=== PATIENT | male | born 1980 | race African-American/Black ===

== ENCOUNTER 2017-01-24 17:28 | Emergency (ER) | payer OTHER ==
[~2017-01-24] VITALS: Ht 175.3 cm; Wt 84.0 kg
[~2017-01-24 17:28] MED LIST: IBUP400T20 PO
[2017-01-24 17:29] VITALS: BP 121/80; PULSE 86; RESP 18; TEMP 99.1; O2SAT 100
--- NOTE | 2017-01-24 17:34 | PD ---
Physical Exam Time Seen by Provider: 17:32 Narrative 37yo M c/o R upper leg pain after bumping his leg on a chair and is now having a sickle cell crisis. Patient seen in triage. VS reviewed. Awaiting bed placement. Data Data Last Documented VS Vital Signs Date Time Temp Pulse Resp B/P Pulse Ox O2 Delivery O2 Flow Rate FiO2 01/24/17 17:29 99.1 86 18 121/80 100 Room Air MDM Supervised Visit with JEANNE: Radha Arshad January 24, 2017 17:33
[2017-01-24] MEDS ORDERED: SODIUM CHLOR 0.9% 1000 ML INJ 1,000 ML IV ONE (17:52)
[2017-01-24] MEDS ORDERED: KETOROLAC TROMETHAMINE 30 MG/ML (IVP) VIAL IVP ONE (18:00)
[2017-01-24] MEDS ORDERED: SODIUM CHLORIDE 0.9% FLUSH 10 ML FLUSH IVF PRN (18:00)
[2017-01-24 18:01] VITALS: RESP 18; O2SAT 97
--- NOTE | 2017-01-24 18:02 | PD ---
HPI Chief Complaint: Sickle Cell Time Seen by Provider: 17:57 Travel History International Travel<30 days: No Contact w/Intl Traveler<30days: No Traveled to known affect area: No History of Present Illness HPI Patient's 37-year-old male presenting to emergency department for evaluation of possible sickle cell crisis. Patient states he hit his right tate on Sunday on an iron chair, since that time he's had pain in the right thigh and hip area. He states his pain is a 9 out of 10 and describes as aching and throbbing. Patient has not had a sickle cell crisis in quite some time per his report. He denies any chest pain, shortness of breath, headache. Patient is legally blind but can see shapes images appear foggy. This is secondary to sickle cell retinopathy. PFSH Past Medical History Autoimmune Disease: Yes (SICKLE CELL ) Blood Disorders: Yes (SICKLE CELL) Cardiovascular Problems: No Patient Takes Glucophage: No Diminished Hearing: No Genitourinary: No Musculoskeletal: No Neurologic: No Respiratory: No Sickle Cell Disease: Yes (TRAIT) Tetanus Vaccination: Unknown Influenza Vaccination: No Past Surgical History Cholecystectomy: Yes Eye Surgery: Yes (R RETINA REATTACHMENT AND CORNEA REPLACEMENT, L EYE PROSTHETIC) Other Surgery: Yes Social History Alcohol Use: No Tobacco Use: No Substance Use: No Allergies-Medications (Allergen,Severity, Reaction): Coded Allergies: Egg Allergy (Verified Allergy, Severe, Nausea/Vomiting, 01/24/17) Reported Meds & Prescriptions Reported Meds & Active Scripts Active Ibuprofen 400 Mg Tab 400 Mg PO Q6H PRN Review of Systems Except as stated in HPI: all other systems reviewed are Neg HENT: No: Headaches Cardiovascular: No: Chest Pain or Discomfort Respiratory: No: Shortness of Breath Gastrointestinal: No: Nausea, Vomiting, Abdominal Pain Genitourinary: No: Dysuria Musculoskeletal: Positive: Myalgias, Pain Neurologic: No: Weakness, Dizziness, Syncope, Focal Abnormalities Physical Exam Narrative GENERAL: Well-developed, well-nourished, alert male. Resting comfortably in no acute distress. SKIN: Focused skin assessment warm/dry. 0.5 cm superficial abrasion to right anterior tate, no erythema, edema or induration noted. HEAD: Atraumatic. Normocephalic. EYES: Right eye is a prosthetic. No scleral icterus. No injection or drainage. ENT: No nasal bleeding or discharge. Mucous membranes pink and moist. NECK: Trachea midline. No JVD. CARDIOVASCULAR: Regular rate and rhythm. No murmur appreciated. RESPIRATORY: No accessory muscle use. Clear to auscultation. Breath sounds equal bilaterally. GASTROINTESTINAL: Abdomen soft, non-tender, nondistended. Hepatic and splenic margins not palpable. MUSCULOSKELETAL: No obvious deformities. No clubbing. No cyanosis. No edema. NEUROLOGICAL: Awake and alert. No obvious cranial nerve deficits. Motor grossly within normal limits. Normal speech. PSYCHIATRIC: Appropriate mood and affect; insight and judgment normal. Data Data Last Documented VS Vital Signs Date Time Temp Pulse Resp B/P Pulse Ox O2 Delivery O2 Flow Rate FiO2 01/24/17 19:09 72 18 108/55 99 Room Air 01/24/17 17:29 99.1 Orders C-Reactive Protein (Crp) (01/24/17 17:52) Complete Blood Count With Diff (01/24/17 17:52) Comprehensive Metabolic Panel (01/24/17 17:52) Retic Count (01/24/17 17:52) Urinalysis - C+S If Indicated (01/24/17 17:52) Ecg Monitoring (01/24/17 17:52) Iv Access Insert/Monitor (01/24/17 17:52) Oximetry (01/24/17 17:52) Ketorolac Inj (Toradol Inj) (01/24/17 18:00) Sodium Chloride 0.9% Flush (Ns Flush) (01/24/17 18:00) Sodium Chlor 0.9% 1000 Ml Inj (Ns 1000 M (01/24/17 17:52) Labs Laboratory Tests Test 01/24/17 01/24/17 18:05 18:10 White Blood Count 9.9 TH/MM3 Red Blood Count 5.00 MIL/MM3 Hemoglobin 13.2 GM/DL Hematocrit 38.5 % Mean Corpuscular Volume 77.1 FL Mean Corpuscular Hemoglobin 26.4 PG Mean Corpuscular Hemoglobin 34.3 % Concent Red Cell Distribution Width 20.1 % Platelet Count 88 TH/MM3 Mean Platelet Volume 8.5 FL Neutrophils (%) (Auto) 73.8 % Lymphocytes (%) (Auto) 16.8 % Monocytes (%) (Auto) 5.3 % Eosinophils (%) (Auto) 3.7 % Basophils (%) (Auto) 0.4 % Neutrophils # (Auto) 7.3 TH/MM3 Lymphocytes # (Auto) 1.7 TH/MM3 Monocytes # (Auto) 0.5 TH/MM3 Eosinophils # (Auto) 0.4 TH/MM3 Basophils # (Auto) 0.0 TH/MM3 CBC Comment AUTO DIFF Reticulocyte Count 3.0 % Absolute Reticulocyte Count 147.7 MIL/L Sodium Level 142 MEQ/L Potassium Level 3.5 MEQ/L Chloride Level 107 MEQ/L Carbon Dioxide Level 28.5 MEQ/L Anion Gap 7 MEQ/L Blood Urea Nitrogen 12 MG/DL Creatinine 1.27 MG/DL Estimat Glomerular Filtration 77 ML/MIN Rate Random Glucose 87 MG/DL Calcium Level 8.9 MG/DL Total Bilirubin 1.2 MG/DL Aspartate Amino Transf 29 U/L (AST/SGOT) Alanine Aminotransferase 36 U/L (ALT/SGPT) Alkaline Phosphatase 53 U/L C-Reactive Protein LESS THAN 0.29 MG/DL Total Protein 7.5 GM/DL Albumin 4.3 GM/DL Urine Color YELLOW Urine Turbidity CLEAR Urine pH 5.5 Urine Specific [place] 1.010 Urine Protein NEG mg/dL Urine Glucose (UA) NEG mg/dL Urine Ketones NEG mg/dL Urine Occult Blood NEG Urine Nitrite NEG Urine Bilirubin NEG Urine Urobilinogen LESS THAN 2.0 MG/DL Urine Leukocyte Esterase NEG Urine RBC LESS THAN 1 /hpf Urine WBC 1 /hpf Microscopic Urinalysis Comment CULT NOT INDICATED MDM Medical Decision Making Medical Screen Exam Complete: Yes Emergency Medical Condition: Yes Interpretation(s) Vital Signs Date Time Temp Pulse Resp B/P Pulse Ox O2 Delivery O2 Flow Rate FiO2 01/24/17 17:44 90 20 99 Room Air 01/24/17 17:29 99.1 86 18 121/80 100 Room Air Differential Diagnosis Sickle cell crisis versus myalgia versus electrical abnormality versus anemia versus other Narrative Course Patient is a 37-year-old male presenting to emergency for evaluation of right upper leg pain secondary to hitting his tate on a chair 2 days ago. He presents believing that he is in sickle cell crisis, however it appears at least at this time the pain may be related to gait abnormalities due to the tate pain after he injured it. Labs ordered and pending. Patient's vital signs are stable and is resting comfortably. CBC is unremarkable Reticulocyte count 3.0 Chemistry is unremarkable Urinalysis unremarkable. Patient is not in sickle cell crisis, she'll be discharged home with a short course of oral anti-inflammatory medication. He is encouraged to continue range of motion exercises. He is encouraged to follow up at the [facility] to establish primary care. He verbalizes understanding of instructions. Patient is stable for discharge. Diagnosis Primary Impression: Muscle strain of right thigh Qualified Code: S76.911A - Muscle strain of right thigh, initial encounter Referrals: [facility] Patient Instructions: General Instructions, Muscle Strain (ED) Additional Instructions: Establish care with a primary doctor/[facility] clinic Take medications as directed Maintain adequate fluid intake Continue range of motion exercises, apply warm moist heat to the affected area Return to emergency department for any new or worsening symptoms Med/Other Pt SpecificInfo: Prescription(s) given Scripts Cyclobenzaprine (Flexeril)10 Mg Tab10 Mg PO TID PRN (MUSCLE SPASM) 7 Days Ref 0 Prov:Susana Esteves 01/24/17 Ibuprofen 800 Mg Ulj290 Mg PO Q8HR PRN (PAIN) #40 TAB Ref 0 Prov:Susana Esteves 01/24/17 Disposition: 01 DISCHARGE HOME Condition: Stable Susana Esteves January 24, 2017 18:02
[2017-01-24 18:22] LABS: AUTOMATED NEUTROPHIL # 7.3 TH/MM3 (1.8-7.7); BASOPHIL % 0.4 % (0.0-2.0); EOSINOPHIL # 0.4 TH/MM3 (0-0.4); EOSINOPHIL % 3.7 % (0.0-4.0); HEMATOCRIT 38.5 % (39.0-51.0); LYMPH % 16.8 % (9.0-44.0); LYMPHOCYTE # 1.7 TH/MM3 (1.0-4.8); MEAN CELL VOLUME 77.1 FL (80.0-100.0); MEAN CORPUSCULAR HEMOGLOBIN 26.4 PG (27.0-34.0); MEAN CORPUSCULAR HGB CONC 34.3 % (32.0-36.0); MONO % 5.3 % (0.0-8.0); NEUT % 73.8 % (16.0-70.0); PLATELET COUNT 88 TH/MM3 (150-450); RED CELL DISTRIBUTION WIDTH 20.1 % (11.6-17.2); WHITE BLOOD COUNT 9.9 TH/MM3 (4.0-11.0)
[2017-01-24 18:30] LABS: HEMO FLAGS AUTO DIFF; REVIEW FLAG AUTO DIFF
[2017-01-24 18:32] LABS: BLOOD, URINE NEG (NEG); COMMENT (UR) CULT NOT INDICATED; CULTURE IF INDICATED CULT NOT INDICATED; GLUCOSE,URINE NEG (NEG); KETONE, URINE NEG (NEG); NITRITE,URINE NEG (NEG); PH, URINE 5.5 (5.0-8.5); URINE COLOR YELLOW (YELLW/STRAW)
[2017-01-24 18:41] LABS: ALKALINE PHOSPHATASE 53 U/L (45-117); TOTAL BILIRUBIN ADULT 1.2 MG/DL (0.2-1.0)
[2017-01-24 18:42] LABS: ALT (GPT) 36 U/L (12-78); ANION GAP 7 MEQ/L (5-15); AST (GOT) 29 U/L (15-37); BICARBONATE 28.5 MEQ/L (21.0-32.0); BLOOD UREA NITROGEN 12 MG/DL (7-18); CHLORIDE 107 MEQ/L (98-107); GLOMERULAR FILTRATION RATE 77 ML/MIN (>89); POTASSIUM 3.5 MEQ/L (3.5-5.1); SODIUM (NA) 142 MEQ/L (136-145)
[2017-01-24 19:09] VITALS: BP 108/55; PULSE 72; RESP 18; O2SAT 99
[2017-01-24] MEDS ORDERED: IBUP800T23 PO (19:26)
[2017-01-24] MEDS ORDERED: CYCL1TAB29 PO (19:26)
[2017-01-24 19:56] LABS: EOSINOPHILS 5 % (0-4); NEUTROPHIL # MANUAL DIFF 6.8 TH/MM3 (1.8-7.7); POLYS (SEG NEUTROPHILS) 69 % (16-70); WBC DIFF SAMPLE 100
[2017-01-24 19:57] LABS: OVALOCYTES 1+ (NORMAL); PLATELET ESTIMATE SMEAR LOW (NORMAL); PLATELET MORPHOLOGY NORMAL (NORMAL); SCAN/DIFF FINAL DIFF MANUAL; STOMATOCYTES 1+ (NORMAL); TARGET CELLS 2+ (NORMAL)
== END 2017-01-24 19:54 | disposition home or self-care (01) ==
LOC: NEPE 17:28
DX: S76.911A Strain of unspecified muscles, fascia and tendons at thigh level, right thigh, initial encounter (principal); W22.03XA Walked into furniture, initial encounter
CPT/HCPCS: 80053; 81001; 85007; 85027; 85044; 86140; 96374; 99284; J1885; J7030

== ENCOUNTER 2017-02-24 07:45 | Inpatient (IN) | payer OTHER ==
[2017-02-24] VITALS (21 sets, daily range): BP systolic 82–137; BP diastolic 51–64; PULSE 89–149; RESP 6–26; TEMP 95.1–97.8; O2SAT 99–100
[~2017-02-24] VITALS: Ht 177.8 cm; Wt 102.0 kg
[~2017-02-24 07:45] MED LIST changes: +CYCL1TAB29 PO; +IBUP800T23 PO
[2017-02-24] MEDS ORDERED: SODIUM CHLOR 0.9% 1000 ML INJ 1,000 ML IV SCH (08:11)
[2017-02-24] MEDS ORDERED: fentaNYL DRIP 250 ML IV SCH (08:15)
[2017-02-24] MEDS ORDERED: SODIUM CHLORIDE 0.9% FLUSH 5 ML FLUSH IV FLUSH PRN (08:15)
[2017-02-24] MEDS ORDERED: MIDAZOLAM 100 MG/ML INJ 100 ML IV SCH (08:15)
[2017-02-24] MEDS ORDERED: MIDAZOLAM HCL 2 MG/2 ML VIAL IV PUSH ONE (08:15)
--- NOTE | 2017-02-24 08:19 | PD ---
HPI Chief Complaint: Altered Mental Status Time Seen by Provider: 08:10 Travel History International Travel<30 days: No Contact w/Intl Traveler<30days: No Traveled to known affect area: No History of Present Illness HPI 37yo M with PMH of sickle cell disease and bilateral blindness brought in by [facility] for being unresponsive. Pt was found unresponsive by roommate this morning. [facility] found pt half on his bed and half off his bed. O2 sat was 50% and pt placed on 100% nonrebreather and Sat was 100%. Pt given 2mg of narcan and his tachycardia improved but still non verbal and not responding to painful stimuli. No response to IV insertion. No signs of trauma on him. Blood glucose was in the 200s. PFSH Past Medical History Autoimmune Disease: Yes (SICKLE CELL ) Blood Disorders: Yes (SICKLE CELL) Cardiovascular Problems: No Diminished Hearing: No Genitourinary: No Musculoskeletal: No Neurologic: No Respiratory: No Sickle Cell Disease: Yes (TRAIT) Tetanus Vaccination: Unknown Past Surgical History Cholecystectomy: Yes Eye Surgery: Yes (R RETINA REATTACHMENT AND CORNEA REPLACEMENT, L EYE PROSTHETIC) Other Surgery: Yes Social History Alcohol Use: No Tobacco Use: No Substance Use: No Allergies-Medications (Allergen,Severity, Reaction): Coded Allergies: Egg Allergy (Verified Allergy, Severe, Nausea/Vomiting, 02/24/17) Reported Meds & Prescriptions Reported Meds & Active Scripts Active Active Prescriptions or Reported Medications Unobtainable Review of Systems Except as stated in HPI: all other systems reviewed are Neg Physical Exam Narrative GENERAL: 37yo M unresponsive. SKIN: Focused skin assessment warm/dry. HEAD: Atraumatic. Normocephalic. EYES: Left eye enucleated. Right pupil not responsive. Pt is blind. ENT: No nasal bleeding or discharge. Mucous membranes pink and moist. NECK: Trachea midline. No JVD. CARDIOVASCULAR: Regular rate and rhythm. No murmur appreciated. RESPIRATORY: Coarse breath sounds bilaterally. GASTROINTESTINAL: Abdomen soft, non-tender, nondistended. Hepatic and splenic margins not palpable. MUSCULOSKELETAL: No obvious deformities. No clubbing. No cyanosis. No edema. NEUROLOGICAL: Upgoing plantar in left foot. Pt is biting down on suction. + Gag reflex. No localization of pain in bilateral upper ext and RLE. Data Data Last Documented VS Vital Signs Date Time Temp Pulse Resp B/P Pulse Ox O2 Delivery O2 Flow Rate FiO2 02/24/17 09:15 100 100 02/24/17 09:12 95.1 147 16 130/64 Ventilator 02/24/17 08:07 15.00 Orders Electrocardiogram (02/24/17 08:11) Ammonia (02/24/17 08:11) Complete Blood Count With Diff (02/24/17 08:11) Comprehensive Metabolic Panel (02/24/17 08:11) Creatine Kinase (Cpk) (02/24/17 08:11) Prothrombin Time / Inr (Pt) (02/24/17 08:11) Act Partial Throm Time (Ptt) (02/24/17 08:11) Troponin I (02/24/17 08:11) Thyroid Stimulating Hormone (02/24/17 08:11) Urinalysis - C+S If Indicated (02/24/17 08:11) Lactic Acid Sepsis Protocol (02/24/17 08:11) Blood Culture (02/24/17 08:11) Chest, Single Ap (02/24/17 08:11) Ct Brain W/O Iv Contrast(Rout) (02/24/17 08:11) Blood Glucose (02/24/17 08:11) Ecg Monitoring (02/24/17 08:11) Iv Access Insert/Monitor (02/24/17 08:11) Oximetry (02/24/17 08:11) Sodium Chloride 0.9% Flush (Ns Flush) (02/24/17 08:15) Sodium Chlor 0.9% 1000 Ml Inj (Ns 1000 M (02/24/17 08:11) Drug Screen, Random Urine (02/24/17 08:11) Alcohol (Ethanol) (02/24/17 08:11) Tylenol (Acetaminophen) (02/24/17 08:11) Salicylates (Aspirin) (02/24/17 08:11) Midazolam Inj (Versed Inj) (02/24/17 08:15) Midazolam Inj (Versed Inj) (02/24/17 08:15) Fentanyl Drip (Fentanyl Drip) (02/24/17 08:15) Urinary Catheter Insert/Apply (02/24/17 08:13) Restraints Non-Violent NGA.Q3H (02/24/17 08:13) Ct Cerv Spine W/O Contrast (02/24/17 ) Apply Cervical Collar (02/24/17 08:19) Midazolam Inj (Versed Inj) (02/24/17 08:39) Fentanyl Drip (Fentanyl Drip) (02/24/17 08:39) Urine Culture (02/24/17 07:55) Vancomycin Inj (Vancomycin Inj) (02/24/17 09:30) Piperacil-Tazo 3.375 Gm Premix (Zosyn 3. (02/24/17 09:30) Sodium Chlor 0.9% 1000 Ml Inj (Ns 1000 M (02/24/17 09:30) Sodium Chlor 0.9% 1000 Ml Inj (Ns 1000 M (02/24/17 09:30) Osmolality,Serum (02/24/17 09:19) CKMB (02/24/17 08:25) CKMB% (02/24/17 08:25) Arterial Blood Gas (Abg) (02/24/17 ) Sodium Bicarbonate 8.4% Inj (Sodium Bica (02/24/17 09:45) Admit Order (Ed Use Only) (02/24/17 09:49) Ct Thorax/ Chest Wo Iv Contras (02/24/17 ) Ct Abd/Pel W/O Iv Contrast (02/24/17 ) Labs Laboratory Tests Test 02/24/17 02/24/17 02/24/17 02/24/17 07:55 08:00 08:25 09:47 Urine Color YELLOW Urine Turbidity HAZY Urine pH 5.5 Urine Specific [place] 1.011 Urine Protein 30 mg/dL Urine Glucose (UA) NEG mg/dL Urine Ketones NEG mg/dL Urine Occult Blood MOD Urine Nitrite NEG Urine Bilirubin NEG Urine Urobilinogen LESS THAN 2.0 MG/DL Urine Leukocyte Esterase NEG Urine RBC 1 /hpf Urine WBC 1 /hpf Urine Amorphous Sediment MOD Urine Bacteria OCC /hpf Urine Mucus FEW /lpf Microscopic Urinalysis Comment CATH-CULTURE IND Urine Opiates Screen NEG Urine Barbiturates Screen NEG Urine Amphetamines Screen NEG Urine Benzodiazepines Screen NEG Urine Cocaine Screen NEG Urine Cannabinoids Screen NEG Lactic Acid Level 19.6 mmol/L Ammonia 253 MCMOL/L White Blood Count 30.2 TH/MM3 Red Blood Count 4.89 MIL/MM3 Hemoglobin 13.0 GM/DL Hematocrit 39.5 % Mean Corpuscular Volume 80.8 FL Mean Corpuscular Hemoglobin 26.6 PG Mean Corpuscular Hemoglobin 32.9 % Concent Red Cell Distribution Width 19.7 % Platelet Count 60 TH/MM3 Mean Platelet Volume 9.2 FL Neutrophils (%) (Auto) 75.6 % Lymphocytes (%) (Auto) 13.4 % Monocytes (%) (Auto) 10.5 % Eosinophils (%) (Auto) 0.4 % Basophils (%) (Auto) 0.1 % Neutrophils # (Auto) 22.8 TH/MM3 Lymphocytes # (Auto) 4.0 TH/MM3 Monocytes # (Auto) 3.2 TH/MM3 Eosinophils # (Auto) 0.1 TH/MM3 Basophils # (Auto) 0.0 TH/MM3 CBC Comment AUTO DIFF Differential Total Cells 100 Counted Neutrophils % (Manual) 78 % Band Neutrophils % 1 % Lymphocytes % 14 % Monocytes % 7 % Neutrophils # (Manual) 23.9 TH/MM3 Differential Comment FINAL DIFF MANUAL Platelet Estimate LOW Platelet Morphology Comment NORMAL Target Cells 1+ Prothrombin Time 13.0 SEC Prothromb Time International 1.2 RATIO Ratio Activated Partial 30.8 SEC Thromboplast Time Sodium Level 146 MEQ/L Potassium Level 4.0 MEQ/L Chloride Level 107 MEQ/L Carbon Dioxide Level 9.9 MEQ/L Anion Gap 29 MEQ/L Blood Urea Nitrogen 13 MG/DL Creatinine 2.75 MG/DL Estimat Glomerular Filtration 31 ML/MIN Rate Random Glucose 140 MG/DL Calcium Level 9.1 MG/DL Total Bilirubin 1.9 MG/DL Aspartate Amino Transf 141 U/L (AST/SGOT) Alanine Aminotransferase 96 U/L (ALT/SGPT) Alkaline Phosphatase 102 U/L Total Creatine Kinase 4081 U/L Creatine Kinase MB 25.1 NG/ML Creatine Kinase MB % 0.6 % Troponin I 8.32 NG/ML Total Protein 8.3 GM/DL Albumin 4.4 GM/DL Thyroid Stimulating Hormone 1.790 uIU/ML 3rd Gen Salicylates Level LESS THAN 1.7 MG/DL Acetaminophen Level LESS THAN 2.0 MCG/ML Ethyl Alcohol Level LESS THAN 3 MG/DL Serum Osmolality 326 MOSM/KG Test 02/24/17 09:48 Blood Gas Puncture Site RT FEMORAL Blood Gas Patient Temperature 98.6 Blood Gas HCO3 11 mmol/L Blood Gas Base Excess -17.9 mmol/L Blood Gas Oxygen Saturation 98 % Arterial Blood pH 7.00 Arterial Blood Partial 48 mmHg Pressure CO2 Arterial Blood Partial 338 mmHG Pressure O2 Arterial Blood Oxygen Content 19.1 Vol % Arterial Blood 0.0 % Carboxyhemoglobin Arterial Blood Methemoglobin 1.1 % Blood Gas Hemoglobin 13.3 G/DL Oxygen Delivery Device VENTILATOR Blood Gas Ventilator Setting 500/16/+5/1.0 Blood Gas Inspired Oxygen 100 % [facility] Medical Decision Making Medical Screen Exam Complete: Yes Emergency Medical Condition: Yes Interpretation(s) EKG: Sinus tachycardia at 148bpm. LAD. Incomplete RBBB. Differential Diagnosis Aspiration pneumonia vs. seizure vs. drug use vs. ICH Narrative Course 37yo M with altered mental status. Pt was hypoxic and place on 100% nonrebreather by [facility]. Pt unresponsive and emergently intubated in the ED. Pt was then noted to be in sinus tachycardia in the 140s and hypothermic. Bear hugger ordered. CXR showed ET tube and NG tube in good position. Good aeration of both lung lozada. CT brain negative. CT cervical spine negative. Pt found to be in severe sepsis with WBC 30.2, lactic acid at 19.6. Pt empirically given vancomycin and zosyn. Also ordered NS IVF x3. Creatinine elevated at 2.75. Thrombocytopenic at 60 which is lower than his baseline of 80. Troponin elevated at 8.32. Ammonia elevated at 253, given lactulose. Discussed with cardiology Dr. Garcia and thinks this is more from sepsis, r/ o PE. I also think that elevated troponin likely from severe sepsis. CPK is elevated at 4081. Increased anion gap at 29. CO2 low at 9.9. Pt given 1 amp of sodium bicarb. Discussed with video system repairer Dr. Elizalde who recommends another amp of sodium bicarb and a drip. Recommend to discontinue versed drip. ABG showed metabolic acidosis with pH of 6.99. pCO2 48.3. pO2 338. HCO3 of 11.2. Utox negative. Salicylate, alcohol, acetaminophen negative. Dr. Elizalde also recommended CT chest and abd/pelvis without contrast which is ordered. Attempted to call pt's sister Bia Morillo at [phone] but no one answered. Critical Care Narrative Aggregate critical care time was 90 minutes. Time to perform other separately billable procedures was not included in the critical care time. My time did not include minutes spent treating any other patients simultaneously or on activities that did not directly contribute to the patient's treatment. The services I provided to this patient were to treat and/or prevent clinically significant deterioration that could result in: cardiovascular collapse or . I provided critical care services requiring my management, as noted below: Chart data review, documentation time, medication orders and management, vital sign assessments/reviewing monitor data, ordering and reviewing lab tests, ordering and interpreting/reviewing x-rays and diagnostic studies, care of the patient and discussion of the patient with the admitting physicians. Procedures Procedure Narrative The patient was put in optimal position for the procedure. Rapid sequence intubation was initiated by me using 20 milligrams of etomidate IV and 50 milligrams of rocuronium IV. The patient was intubated with a 7.5 cuffed endotracheal tube. Tube placement was confirmed by visualization of the tube and balloon passing through the cords, capnometry and subsequent chest x-ray. Breath sounds were equal and well aerated bilaterally postintubation. No breath sounds over stomach. Patient tolerated procedure well. Sepsis Criteria SIRS Criteria (2 or more): Temp > 100.9 or < 96.8, Heart rate over 90, WBC > 04333, < 4000 or > 10% bands Severe Sepsis (+one): Lactate >2, Acute Oliguria/Renal Failure Septic Shock Criteria: Lactic acid >=4 Multiple Organ Dysfunction Syn: Evidence -2 organs failing Diagnosis Primary Impression: Severe sepsis Additional Impressions: Acute kidney insufficiency Rhabdomyolysis Qualified Code: M62.82 - Non-traumatic rhabdomyolysis Admitting Information Admitting Physician Requests: Admit Scripts Unable to Obtain Active Prescriptions or Reported Meds Bonnie Roberson DO Feb 24, 2017 08:19
--- NOTE | 2017-02-24 08:33 | RADRPT ---
EXAM DATE/TIME: 02/24/2017 08:22 [facility] COMPARISON: No previous studies available for comparison. INDICATIONS : Evaluate ET tube placement. MEDICAL HISTORY : Sickle Cell disease. SURGICAL HISTORY : Unobtainable. ENCOUNTER: Initial ACUITY: 1 day PAIN SCORE: Non-responsive. LOCATION: Bilateral chest FINDINGS: A single view of the chest demonstrates the lungs to be symmetrically aerated without evidence of mas s, infiltrate or effusion. The ET tube appears to be in good position with the tip at the level of t he thoracic aortic arch. There is an NG tube in the stomach. There is no evidence of pneumothorax. Th e cardiomediastinal contours are unremarkable. Osseous structures are intact. CONCLUSION: 1. The ET tube and NG tube are in good position. 2. There is good aeration of both lung lozada. Salde Bustillo MD on February 24, 2017 at 8:30 Board Certified Radiologist. This report was verified electronically.
[2017-02-24] MEDS ORDERED: fentaNYL DRIP 250 ML ONE (08:39)
[2017-02-24] MEDS ORDERED: MIDAZOLAM 100 MG/ML INJ 100 ML ONE (08:39)
[2017-02-24 08:42] LABS: AUTOMATED NEUTROPHIL # 22.8 TH/MM3 (1.8-7.7); BASOPHIL % 0.1 % (0.0-2.0); EOSINOPHIL # 0.1 TH/MM3 (0-0.4); EOSINOPHIL % 0.4 % (0.0-4.0); HEMATOCRIT 39.5 % (39.0-51.0); LYMPH % 13.4 % (9.0-44.0); MEAN CELL VOLUME 80.8 FL (80.0-100.0); MEAN CORPUSCULAR HEMOGLOBIN 26.6 PG (27.0-34.0); MEAN CORPUSCULAR HGB CONC 32.9 % (32.0-36.0); MONO % 10.5 % (0.0-8.0); NEUT % 75.6 % (16.0-70.0); PLATELET COUNT 60 TH/MM3 (150-450); RED BLOOD COUNT 4.89 MIL/MM3 (4.50-5.90); RED CELL DISTRIBUTION WIDTH 19.7 % (11.6-17.2); WHITE BLOOD COUNT 30.2 TH/MM3 (4.0-11.0)
[2017-02-24 08:45] LABS: HEMO FLAGS AUTO DIFF
[2017-02-24 08:50] LABS: BACTERIA, URINE OCC /hpf; BLOOD, URINE MOD (NEG); GLUCOSE,URINE NEG (NEG); KETONE, URINE NEG (NEG); MUCUS URINE FEW /lpf (OCC); NITRITE,URINE NEG (NEG); PH, URINE 5.5 (5.0-8.5); URINE COLOR YELLOW (YELLW/STRAW)
[2017-02-24 08:51] LABS: APTT (PATIENT) 30.8 SEC (24.3-30.1); INTERNATIONAL NORMALIZED RATIO 1.2 RATIO
[2017-02-24 08:51] LABS: COMMENT (UR) CATH-CULTURE IND; CULTURE IF INDICATED CATH CULTURE IND
[2017-02-24 09:07] LABS: ALT (GPT) 96 U/L (12-78); ANION GAP 29 MEQ/L (5-15); AST (GOT) 141 U/L (15-37); BICARBONATE 9.9 MEQ/L (21.0-32.0); BLOOD UREA NITROGEN 13 MG/DL (7-18); CHLORIDE 107 MEQ/L (98-107); GLOMERULAR FILTRATION RATE 31 ML/MIN (>89); SODIUM (NA) 146 MEQ/L (136-145)
[2017-02-24 09:08] LABS: AMPHETAMINE, URINE NEG (NEG); BARBITURATES, URINE NEG (NEG); COCAINE, URINE NEG (NEG)
[2017-02-24 09:18] LABS: BANDS 1 % (0-6); NEUTROPHIL # MANUAL DIFF 23.9 TH/MM3 (1.8-7.7); PLATELET ESTIMATE SMEAR LOW (NORMAL); PLATELET MORPHOLOGY NORMAL (NORMAL); POLYS (SEG NEUTROPHILS) 78 % (16-70); SCAN/DIFF FINAL DIFF MANUAL; TARGET CELLS 1+ (NORMAL); WBC DIFF SAMPLE 100
[2017-02-24 09:24] LABS: ALKALINE PHOSPHATASE 102 U/L (45-117); CREATINE KINASE 4081 U/L (39-308); TOTAL BILIRUBIN ADULT 1.9 MG/DL (0.2-1.0)
[2017-02-24 09:25] LABS: ACETAMINOPHEN LESS THAN 2.0 MCG/ML (10.0-30.0)
--- NOTE | 2017-02-24 09:29 | RADRPT ---
EXAM DATE/TIME: 02/24/2017 09:13 [facility] COMPARISON: No previous studies available for comparison. INDICATIONS : Unresponsive; found on floor. RADIATION DOSE: 38.66 CTDIvol (mGy) MEDICAL HISTORY : Sickle cell disease. Blind. SURGICAL HISTORY : Eye. ENCOUNTER: Initial ACUITY: 1 day PAIN SCALE: Non-responsive LOCATION: cranial TECHNIQUE: Multiple contiguous axial images were obtained of the head. Using automated exposure control and adj ustment of the mA and/or kV according to patient size, radiation dose was kept as low as reasonably a chievable to obtain optimal diagnostic quality images. DICOM format image data is available electro nically for review and comparison. FINDINGS: CEREBRUM: The ventricles are normal for age. No evidence of midline shift, mass lesion, hemorrhage or acute in farction. No extra-axial fluid collections are seen. POSTERIOR FOSSA: The cerebellum and brainstem are intact. The 4th ventricle is midline. The cerebellopontine angle i s unremarkable. EXTRACRANIAL: The visualized portion of the orbits is intact. Bilateral calcified lobes SKULL: The calvaria is intact. No evidence of skull fracture. CONCLUSION: Unremarkable CT scan of the brain Slade Bustillo MD on February 24, 2017 at 9:26 Board Certified Radiologist. This report was verified electronically.
[2017-02-24] MEDS ORDERED: SODIUM CHLOR 0.9% 1000 ML INJ 1,000 ML IV ONE ×2 (09:30)
[2017-02-24] MEDS ORDERED: VANCOMYCIN INJ 1,000 MG in SODIUM CHLOR 0.9% 250 ML INJ 250 ML IV ONE (09:30)
[2017-02-24] MEDS ORDERED: PIPERACIL-TAZO 3.375 GM PREMIX 50 ML IV ONE (09:30)
[2017-02-24 09:40] LABS: CKMB 25.1 NG/ML (0.5-3.6)
--- NOTE | 2017-02-24 09:41 | RADRPT ---
EXAM DATE/TIME: 02/24/2017 09:13 [facility] COMPARISON: No previous studies available for comparison. INDICATIONS : Unresponsive; found on floor. RADIATION DOSE: 23.12 CTDIvol (mGy) MEDICAL HISTORY : Sickle cell disease. Blind. SURGICAL HISTORY : eye. ENCOUNTER: Initial ACUITY: 1 day PAIN SCALE: Non-responsive LOCATION: Bilateral neck TECHNIQUE: Volumetric scanning of the cervical spine was performed. Multiplanar reconstructions in the sagittal, coronal and oblique axial planes were performed. Using automated exposure control and adjustment o f the mA and/or kV according to patient size, radiation dose was kept as low as reasonably achievable to obtain optimal diagnostic quality images. DICOM format image data is available electronically f or review and comparison. FINDINGS: VERTEBRAE: Normal vertebral body height. ALIGNMENT: No evidence of subluxation. C2-C3: The bony spinal canal is normal in size. No evidence of disc bulge or herniation. The neural forami na are bilaterally patent. C3-C4: The bony spinal canal is normal in size. No evidence of disc bulge or herniation. The neural forami na are bilaterally patent. C4-C5: The bony spinal canal is normal in size. No evidence of disc bulge or herniation. The neural forami na are bilaterally patent. C5-C6: The bony spinal canal is normal in size. No evidence of disc bulge or herniation. The neural forami na are bilaterally patent. C6-C7: The bony spinal canal is normal in size. No evidence of disc bulge or herniation. The neural forami na are bilaterally patent. C7-T1: The bony spinal canal is normal in size. No evidence of disc bulge or herniation. The neural forami na are bilaterally patent. CONCLUSION: Normal examination for a patient of this age. Slade Bustillo MD on February 24, 2017 at 9:36 Board Certified Radiologist. This report was verified electronically.
[2017-02-24] MEDS ORDERED: SODIUM BICARBONATE 8.4% INJ 50 MEQ/50 ML SYR IV PUSH ONE ×3 (09:45→13:15)
[2017-02-24] MEDS ORDERED: LACTULOSE SYRUP 20 GM/30 ML CUP PO ONE (10:00)
[2017-02-24 10:03] LABS: BLOOD GAS BASE EXCESS -17.9 mmol/L (-2-2); BLOOD GAS HCO3 11 mmol/L (22-26); BLOOD GAS METHEMOGLOBIN 1.1 % (0-2); BLOOD GAS O2 HGB SATURATION 98 % (90-100); BLOOD GAS OXYGEN CONTENT 19.1 Vol % (12.0-20.0); BLOOD GAS PCO2 48 mmHg (38-42); BLOOD GAS PO2 338 mmHG (61-120); BLOOD GAS TOTAL HGB 13.3 G/DL (12.0-16.0); TEMP CORR TO 98.6
[2017-02-24 10:04] LABS: CRITICAL VALUE YES; OXYGEN DEVICE VENTILATOR
[2017-02-24 10:05] LABS: DRAW SITE RT FEMORAL; FIO2 100 %; NUMBER OF ARTERIAL PUNCTURES 1; STAT YES
[2017-02-24] MEDS ORDERED: PANTOPRAZOLE SODIUM 40 MG VIAL IV SCH (10:15)
[2017-02-24] MEDS ORDERED: MISCELLANEOUS NURSING INFORMATION XX SCH (10:15)
[2017-02-24] MEDS ORDERED: CHLORHEXIDINE GLUCONATE 2 % 1 PACK (2 CLOTHS) TOP PRN (10:15)
[2017-02-24] MEDS ORDERED: BISACODYL 10 MG SUPP RECTAL PRN (10:15)
[2017-02-24] MEDS: DOCUSATE SODIUM 50 MG/SENNA 8.6 MG TAB PO SCH ×2 (10:15→19:16)
[2017-02-24] MEDS ORDERED: Vancomycin Consult Pharmacy 1 EA OTHER SCH (10:15)
[2017-02-24] MEDS: RESP: ALBUTEROL 2.5 MG/IPRATROPIUM 0.5 MG NEB (SCH) INH ×3 (10:15→21:26)
[2017-02-24] MEDS ORDERED: LACTULOSE SYRUP 20 GM/30 ML CUP PO PRN (10:15)
[2017-02-24] MEDS ORDERED: MAGNESIUM HYDROXIDE SUSP 30 ML CUP PO PRN (10:15)
[2017-02-24] MEDS ORDERED: SENNOSIDES 8.6 MG TAB PO PRN (10:15)
[2017-02-24] MEDS ORDERED: SODIUM BICARBONATE 8.4% SOLN 50 MEQ/50 ML VIAL IV PUSH ONE (10:15)
[2017-02-24 10:30] LABS: LACTIC ACID GHOST NOT REPORTABLE
[2017-02-24] MEDS ORDERED: ETOMIDATE 20 MG/10 ML VIAL IV PUSH ONE (10:30)
[2017-02-24] MEDS ORDERED: ROCURONIUM INJ 50 MG/5 ML VIAL IV ONE (10:30)
[2017-02-24] MEDS: INSULIN NovoLIN REGULAR SUPPLEMENTAL SCALE SQ SCH ×4 (10:45→22:45)
[2017-02-24] MEDS ORDERED: GLUCAGON 1 MG/ML VIAL OTHER PRN (10:45)
[2017-02-24] MEDS ORDERED: DEXTROSE 50% IN WATER 50 ML VIAL(D50) IV PRN (10:45)
--- NOTE | 2017-02-24 11:21 | MH ---
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 The patient was brought into [facility] emergency department after he was found unresponsive by his roommate this morning. He had o2 saturation in the 50's and was subsequently placed on 100% non-rebreather, and his saturations improved to 100%. The patient was given 2 mg of Narcan with improvement of his tachycardia however, he remained nonverbal and not responding to any painful stimuli. His blood sugar was in the 200s. In the emergency department the patient was intubated and placed for mechanical ventilation. His laboratory data is significant for severe lactic acidemia with lactic acid level of 19.6, acute renal failure with a creatinine of 2.75 and rhabdomyolysis with elevated total creatine kinase 4,081. He was also found to have a troponin of 8.32. Arterial blood gas post intubation showed a pH of 7.0, co2 48, pao2 338, bicarbonate 11, saturations of 98% on packed red blood cells with a rate of 15, tidal volume 500, PEEP of 5, FIO2 100%. Other significant labs showed leukocytosis, white blood cell of 30.2 and thrombocytopenia with a platelet count of 60. CT scan of the brain was obtained which was unremarkable. In addition he had a cervical spine CT which was within normal limits as well. A Chest x-ray post intubation showed endotracheal tube above the carinal and good aeration of both lung lozada. The patient is currently receiving a second liter out of three total of normal saline which was ordered in the emergency department. In addition he was scheduled to receive vancomycin, Zosyn and two ampules of bicarb. Dr. Garcia from cardiology was notified regarding elevated troponins and he also believed it is related to sepsis. PAST MEDICAL HISTORY: Significant for sickle cell disease. PAST SURGICAL HISTORY: Previous right retinal detachment. Corneal replacement. 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 ALLERGIES EGGS. MEDICATIONS: Flexeril Ibuprofen. SOCIAL HISTORY: Non-smoker, non-drinker. FAMILY HISTORY: Unknown. REVIEW OF SYSTEMS Unobtainable. PHYSICAL EXAMINATION: IN GENERAL: A 37 year-old male, intubated for respiratory failure. VITAL SIGNS: Afebrile. Pulse of 146, blood pressure 137/63, saturation 100%, vent setting, rate of 16, tidal volume 500. PEEP of 5, FIO2 100%, ___ 1.0. HEAD, EYES, EARS, NOSE, AND THROAT: Bilateral blindness in both eyes, Atraumatic, normocephalic. Left eye removed. NECK: Supple. No jugular venous distention, no adenopathy or thyromegaly. Trachea is midline, orally intubated. CARDIOVASCULAR: Examination, tachycardic, normal S1, S2, no murmurs, rubs or gallops noted. PULMONARY: Bilateral equal air entry, no rales or wheezing. ABDOMEN: The abdomen is soft, nontender, no distention, positive bowel sounds. EXTREMITIES: No clubbing, cyanosis or edema. NEUROLOGIC: Intubated. Placed on Fentanyl drip for sedation. LABORATORY FINDINGS: Sodium 146, potassium 4, chloride 107, co2 10, blood urea nitrogen 13, creatinine 2.75, glucose 140, lactic acid 19.6. Total bilirubin 1.9, Aspartate aminotransferase 141, alt 96, ammonia level 253. Total CK of 4,081. CK-MB 25, mb% 0.6, troponin 8.32. Thyroid stimulating hormone 1.79, albumin 4.4. White blood count 30, hemoglobin 13, hematocrit 39.5, platelet count 60. INR 1.2, PT 13, PTT of 30.8. Urine drug screen is negative for opiates, amphetamines. Benzodiazepines. Salicylates level less then 1.7, Tylenol level less then 2, alcohol level less then 3. Urinalysis showed negative leukocyte esterase, negative nitrate, 1 white blood cell. RADIOGRAPHIC STUDIES: CT scan of the brain, cervical spine, unremarkable. Chest x-ray showed endotracheal tube above the gus with good aeration of the lung. IMPRESSION: Acute hypoxemic and hypercapnic respiratory failure. Severe sepsis. Acute renal failure. Rhabdomyolysis. Lactic acidemia. Leukocytosis. Elevated troponin which is likely related to sepsis, renal failure. However, cannot exclude coronary artery disease. Hepatic encephalopathy. Elevated liver enzymes. Thrombocytopenia. Sickle cell disease. RECOMMENDATIONS: The patient as placed on fentanyl infusion for sedation and then synchrony, daily sedation medication when appropriate. CT scan of the brain in the emergency department negative for acute intracranial process. Monitor neurostatus closely and place on Lactulose 30 ml four times a day. Monitor ammonia level it was 253 on arrival. Continue with vent support, maintain saturations above 92%. Bronchodilators in the form of Duoneb q six hours and will initial ICA vent bundle. Increase respiratory rate to 20, increase FI02 to 40%. We will repeat arterial blood gas in one hour. Monitor heart rate and blood pressure closely and maintain MAP greater than 65 mmHg. Serial lactic acid monitoring. The patient is scheduled to receive three liters of crystalloids in the emergency department total. We will give two amps of sodium bicarb and place on bicarb and drip. Monitor cardiac enzymes with troponin and we will obtain 2-dimensional echocardiogram to evaluate left ventricular function and to allow regional wall motion abnormalities. Dr. Garcia from cardiology service was notified by emergency department regarding elevated troponin. Electrocardiogram showed sinus tachycardiac at a rate of 148 beats per minute, left anterior descending. Monitor renal function, intake and output and avoid nephrotoxins. Continue with IV fluids as stated above and we will place on sterile water with three amps of bicarb at 150 ml per hour. The patient is also scheduled to receive two amps of bicarb IV push. Keep npo for now and place on Protonix 40 mg IV daily for gastrointestinal prophylaxis. The patient is for a CT scan of the abdomen and pelvis without contrast for further work up of his severe lactic acidemia and to rule out acute abdominal process. Monitor liver enzymes. Continue broad-spectrum antibiotics in the form of Vancomycin and Zosyn and monitor for signs of infections which include fever and white blood count. We will consult infectious disease service. Follow up on blood and urine cultures which were preformed in the emergency department. Monitor complete blood count, Coags and we will check fibrinogen level. Rule out Disseminated intravascular coagulation. Place on sliding scale insulin, Accu-checks q four hours for glycemic control. Gastrointestinal prophylaxis with Protonix 40 mg daily and deep venous thrombosis prophylaxis with sequential compression devices. We will hold off on chemical anticoagulation prophylaxis given underlying thrombocytopenia. The patient is critically ill with respiratory failure. Renal failure, rhabdomyolysis, severe sepsis, and multiorgan injury. Prognosis is guarded. Critical care time of 40 minutes excluding procedures. MD EVA Moura/rex /10:33 AM /10:48 AM
[2017-02-24] MEDS: SODIUM BICARBONATE 8.4% INJ 150 MEQ in WATER STERILE FOR INJ 850 ML IV SCH ×3 (11:31→21:37)
--- NOTE | 2017-02-24 11:32 | RADRPT ---
EXAM DATE/TIME: 02/24/2017 10:48 [facility] COMPARISON: No previous studies available for comparison. INDICATIONS : Found unresponsive; evaluate for sepsis. RADIATION DOSE: 16.17 CTDIvol (mGy) ; Combined studies - Thorax/Abdomen/Pelvis MEDICAL HISTORY : Sickle cell disease. SURGICAL HISTORY : Non-responsive. ENCOUNTER: Initial ACUITY: 1 day PAIN SCALE: Non-responsive LOCATION: Bilateral chest TECHNIQUE: Volumetric scanning of the chest was performed. Using automated exposure control and adjustment of t he mA and/or kV according to patient size, radiation dose was kept as low as reasonably achievable to obtain optimal diagnostic quality images. DICOM format image data is available electronically for r eview and comparison. FINDINGS: LUNGS: There is a focal area of parenchymal consolidation involving the posterior right lower lung. There is a mild interstitial infiltrate in the posterior left lower lung. The upper lung lozada are clear. No evidence of pneumothorax. PLEURAE: There is no pleural thickening or pleural effusion. MEDIASTINUM: The heart and great vessels demonstrate no acute abnormality. There is no mediastinal or hilar lymph adenopathy. The endotracheal tube and NG tube appear to be in good position. AXILLAE: Within normal limits. No lymphadenopathy. MUSCULOSKELETAL: Within normal limits for patient age. MISCELLANEOUS: The visualized upper abdominal organs demonstrate no acute abnormality. CONCLUSION: 1. Parenchymal consolidation involving the right lower lung. 2. Interstitial infiltrate in the left lower lung. Slade Bustillo MD on February 24, 2017 at 11:28 Board Certified Radiologist. This report was verified electronically.
--- NOTE | 2017-02-24 11:59 | RADRPT ---
EXAM DATE/TIME: 02/24/2017 10:48 [facility] COMPARISON: CT ABDOMEN & PELVIS W CONTRAST, October 10, 2012, 10:13. INDICATIONS : Found unresponsive; evaluate for sepsis. ORAL CONTRAST: No oral contrast ingested. RADIATION DOSE: 16.17 CTDIvol (mGy) ; Combined studies - Thorax/Abdomen/Pelvis MEDICAL HISTORY : Sickle cell disease. SURGICAL HISTORY : Non-responsive. ENCOUNTER: Initial ACUITY: 1 day PAIN SCALE: Non-responsive LOCATION: Bilateral abdomen. TECHNIQUE: Volumetric scanning of the abdomen and pelvis was performed. Using automated exposure control and ad justment of the mA and/or kV according to patient size, radiation dose was kept as low as reasonably achievable to obtain optimal diagnostic quality images. DICOM format image data is available electro nically for review and comparison. FINDINGS: LOWER LUNGS: Consolidation in the right lung base. Mild interstitial infiltrate in the left lung base. LIVER: Homogeneous density without lesion. There is no dilation of the biliary tree. No gallbladder, surgi daya removed.. SPLEEN: The spleen remains diffusely enlarged measuring 13.4 cm. There is a small low-density lesion in the s pleen. These findings are stable compared to 2013. PANCREAS: Within normal limits. KIDNEYS: Normal in size and shape. There is no mass, stone, or hydronephrosis. ADRENAL GLANDS: Within normal limits. VASCULAR: There is no aortic aneurysm. BOWEL/MESENTERY: The stomach, small bowel, and colon demonstrate no acute abnormality. There is no free intraperitone al air or fluid. The appendix is unremarkable. No inflammatory changes. There is an NG tube in the st a[facility]. ABDOMINAL WALL: Within normal limits. RETROPERITONEUM: There is no lymphadenopathy. BLADDER: Romero catheter in the bladder. REPRODUCTIVE: Within normal limits. INGUINAL: There is no lymphadenopathy or hernia. MUSCULOSKELETAL: Within normal limits for patient age. CONCLUSION: 1. Stable splenomegaly. 2. No new or significant changes compared to the examination from 2012. Slade Bustillo MD on February 24, 2017 at 11:53 Board Certified Radiologist. This report was verified electronically.
[2017-02-24] MEDS: PIPERACIL-TAZO 3.375 GM PREMIX 50 ML IV SCH ×3 (12:07→22:51)
[2017-02-24] MEDS: LACTULOSE SYRUP 20 GM/30 ML CUP PO SCH ×3 (12:11→19:16)
[2017-02-24 13:11] LABS: BLOOD GAS CARBOXYHEMOGLOBIN 0.7 % (0-4); BLOOD GAS HCO3 12 mmol/L (22-26); BLOOD GAS METHEMOGLOBIN 1.6 % (0-2); BLOOD GAS O2 HGB SATURATION 96 % (90-100); BLOOD GAS OXYGEN CONTENT 17.3 Vol % (12.0-20.0); BLOOD GAS PCO2 38 mmHg (38-42); BLOOD GAS PO2 146 mmHg (61-120); BLOOD GAS TOTAL HGB 12.7 G/DL (12.0-16.0); CRITICAL VALUE YES; OXYGEN DEVICE VENTILATOR; TEMP CORR TO 98.6
[2017-02-24 13:12] LABS: DRAW SITE LT RADIAL; FIO2 40 %; NUMBER OF ARTERIAL PUNCTURES 2; STAT NO; ULNAR PULSE PRESENT; VENT SETTINGS PRVC/AC16/500
--- NOTE | 2017-02-24 13:33 | PD.CONS ---
History of Present Illness Service Infectious disease Consult Requested By Dr Elizalde Reason for Consult Evaluate patient with sepsis Primary Care Physician Unknown Diagnoses: History of Present Illness Patient seen and examined. Records reviewed. History obtained from current records. Patient is a 37-year-old male, with history of sickle cell disease, but has not really had any recent sickle cell crisis, brought into the hospital after he was found by his roommate unresponsive in his room. A friend is currently visiting, and she had seen the patient several days ago, and he was really not having any problem at that time. According to her he apparently was complaining to the roommate that his lower extremity have been hurting and was somewhat concerned that his sickle cell crisis is acting up. He has not really needed any medical attention for his sickle cell disease since he has not had any recent crisis. Patient was brought into the hospital, and he was tachycardic, and lethargic. He was given Narcan with some improvement, but he remained nonverbal. He ended up getting intubated. Since admission he has not been febrile. His WBC is elevated. Lactic acid is elevated. His CPKs are very elevated. His creatinine was also quite elevated to 2.75. Chest x-ray was clear. His CT of the chest though is showing consolidation in the right base and some infiltrate in the left base. The head is negative. CT of the abdomen and pelvis showing stable splenomegaly. His urinalysis is unremarkable. Blood cultures are pending. Infectious disease consultation requested to evaluate the patient for possible sepsis. 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 Past Surgical History Surgery to both eyes Had a prosthesis in the left thigh which reportedly has been removed Retinal surgery on the right eye as well as corneal surgery Cholecystectomy Active Ordered Medications Albuterol Dulcolax Fentanyl Insulin Lactulose MOM Protonix Zosyn Senokot Sodium bicarbonate Vancomycin 1 dose Family History Not known Social History Lives with a roommate No smoking No alcohol abuse No IV drug use Physical Exam Vital Signs Vital Signs Date Time Temp Pulse Resp B/P Pulse Ox O2 Delivery O2 Flow Rate FiO2 02/24/17 12:19 100 40 02/24/17 11:00 96.1 144 16 129/59 100 Ventilator 02/24/17 10:46 95.5 145 16 124/56 100 Ventilator 02/24/17 10:30 100 100 02/24/17 10:17 96.1 149 16 137/63 100 Ventilator 40 02/24/17 09:15 100 100 02/24/17 09:12 95.1 147 16 130/64 100 Ventilator 02/24/17 08:45 95.5 147 16 129/58 100 Ventilator 02/24/17 08:14 100 02/24/17 08:10 97.0 143 16 112/59 100 02/24/17 08:07 100 02/24/17 08:07 138 18 93/52 100 02/24/17 08:07 100 Ventilator 15.00 100 02/24/17 08:07 100 100 02/24/17 08:00 137 6 98/51 100 Nasal Cannula 6 02/24/17 07:56 89 23 117/57 100 Nasal Cannula 6 Physical Exam GENERAL: Patient is a well-nourished, well-developed AAM, sedated on the vent , not in respiratory distress. SKIN: Cool, and dry. No generalized rash, no ecchymoses and no evidence of embolic lesions. Has some brownish macules in both thighs HEAD: Atraumatic. Normocephalic. No temporal wasting, or tenderness. EYES: [place] conjunctiva. No petechia or hemorrhage. No globe in L eye. No injection or drainage. EARS, NOSE AND THROAT: Nose without bleeding or purulent nasal discharge. He is orally intubated. NECK: Trachea midline. Supple and not tender, no meningeal signs CARDIOVASCULAR: Regular rate and rhythm. No murmurs, rubs or gallops heard RESPIRATORY: Coarse BS bilaterally. Breath sounds equal bilaterally. No rales, wheezing or rhonchi ABDOMEN: Soft, nondistended, no reaction to deep palpation. Bowel sounds present and normoactive. EXTREMITIES: No clubbing, cyanosis, or edema. No joint effusion, has good ROM. Cool extremities NEUROLOGICAL: Sedated PSYCHIATRIC: Unable to assess LINE: No evidence of infection : Romero in place, urine slightly blood tinged, clear Laboratory Laboratory Tests Test 02/24/17 02/24/17 02/24/17 02/24/17 07:55 08:00 08:25 09:47 Urine Color YELLOW Urine Turbidity HAZY Urine pH 5.5 Urine Specific [place] 1.011 Urine Protein 30 Urine Glucose (UA) NEG Urine Ketones NEG Urine Occult Blood MOD Urine Nitrite NEG Urine Bilirubin NEG Urine Urobilinogen LESS THAN 2.0 Urine Leukocyte Esterase NEG Urine RBC 1 Urine WBC 1 Urine Amorphous Sediment MOD Urine Bacteria OCC Urine Mucus FEW Microscopic Urinalysis Comment CATH-CULTURE IND Urine Opiates Screen NEG Urine Barbiturates Screen NEG Urine Amphetamines Screen NEG Urine Benzodiazepines Screen NEG Urine Cocaine Screen NEG Urine Cannabinoids Screen NEG Lactic Acid Level 19.6 Ammonia 253 White Blood Count 30.2 Red Blood Count 4.89 Hemoglobin 13.0 Hematocrit 39.5 Mean Corpuscular Volume 80.8 Mean Corpuscular Hemoglobin 26.6 Mean Corpuscular Hemoglobin 32.9 Concent Red Cell Distribution Width 19.7 Platelet Count 60 Mean Platelet Volume 9.2 Neutrophils (%) (Auto) 75.6 Lymphocytes (%) (Auto) 13.4 Monocytes (%) (Auto) 10.5 Eosinophils (%) (Auto) 0.4 Basophils (%) (Auto) 0.1 Neutrophils # (Auto) 22.8 Lymphocytes # (Auto) 4.0 Monocytes # (Auto) 3.2 Eosinophils # (Auto) 0.1 Basophils # (Auto) 0.0 CBC Comment AUTO DIFF Differential Total Cells 100 Counted Neutrophils % (Manual) 78 Band Neutrophils % 1 Lymphocytes % 14 Monocytes % 7 Neutrophils # (Manual) 23.9 Differential Comment FINAL DIFF MANUAL Platelet Estimate LOW Platelet Morphology Comment NORMAL Target Cells 1+ Prothrombin Time 13.0 Prothromb Time International 1.2 Ratio Activated Partial 30.8 Thromboplast Time Sodium Level 146 Potassium Level 4.0 Chloride Level 107 Carbon Dioxide Level 9.9 Anion Gap 29 Blood Urea Nitrogen 13 Creatinine 2.75 Estimat Glomerular Filtration 31 Rate Random Glucose 140 Calcium Level 9.1 Total Bilirubin 1.9 Aspartate Amino Transf 141 (AST/SGOT) Alanine Aminotransferase 96 (ALT/SGPT) Alkaline Phosphatase 102 Total Creatine Kinase 4081 Creatine Kinase MB 25.1 Creatine Kinase MB % 0.6 Troponin I 8.32 Total Protein 8.3 Albumin 4.4 Thyroid Stimulating Hormone 1.790 3rd Gen Salicylates Level LESS THAN 1.7 Acetaminophen Level LESS THAN 2.0 Ethyl Alcohol Level LESS THAN 3 Serum Osmolality 326 Test 02/24/17 02/24/17 02/24/17 09:48 11:37 11:47 Blood Gas Puncture Site RT FEMORAL Blood Gas Patient Temperature 98.6 Blood Gas HCO3 11 Blood Gas Base Excess -17.9 Blood Gas Oxygen Saturation 98 Arterial Blood pH 7.00 Arterial Blood Partial 48 Pressure CO2 Arterial Blood Partial 338 Pressure O2 Arterial Blood Oxygen Content 19.1 Arterial Blood 0.0 Carboxyhemoglobin Arterial Blood Methemoglobin 1.1 Blood Gas Hemoglobin 13.3 Oxygen Delivery Device VENTILATOR Blood Gas Ventilator Setting 500/16/+5/1.0 Blood Gas Inspired Oxygen 100 Fibrinogen 123 Lactic Acid Level 15.0 Date/Time Procedure Status Source Growth 02/24/17 08:25 Aerobic Blood Culture Received Blood Peripheral Pending 02/24/17 08:25 Anaerobic Blood Culture Received Blood Peripheral Pending 02/24/17 07:55 Urine Culture Received Urine Clean Catch Pending Result Diagram: 02/24/1782402/24/17824 Imaging RADIOLOGY STUDIES/FILMS REVIEWED Last Impressions Head CT 02/24/17810 Signed Impressions: Service Date/Time: Friday, February 24, 2017 09:13 - CONCLUSION: Unremarkable CT scan of the brain Slade Bustillo MD Chest X-Ray 02/24/17810 Signed Impressions: Service Date/Time: Friday, February 24, 2017 08:22 - CONCLUSION: 1. The ET tube and NG tube are in good position. 2. There is good aeration of both lung lozada. Slade Bustillo MD Chest CT 02/24/17 Signed Impressions: Service Date/Time: Friday, February 24, 2017 10:48 - CONCLUSION: 1. Parenchymal consolidation involving the right lower lung. 2. Interstitial infiltrate in the left lower lung. Slade Bustillo MD Cervical Spine CT 02/24/17 Signed Impressions: Service Date/Time: Friday, February 24, 2017 09:13 - CONCLUSION: Normal examination for a patient of this age. Slade Bustillo MD Abdomen/Pelvis CT 02/24/17 0000 Signed Impressions: Service Date/Time: Friday, February 24, 2017 10:48 - CONCLUSION: 1. Stable splenomegaly. 2. No new or significant changes compared to the examination from 2013. Slade Bustillo MD Assessment and Plan Assessment and Plan IMPRESSION Unresponsiveness, etiology? - UDS negative - CT head non-contrast negative Possible sepsis, with unresponsiveness, tachycardia, leukocytosis, elevated creatinine and lactic acid, source, ?aspiration PNA Rhabdomyolysis Respiratory failure Renal insufficiency Leukocytosis Sickle cell disease, ?crisis RECOMMENDATION Follow C/S Sputum G/S C/S Agree with checking legio and pneumo Ag Continue Zosyn Check Vanco level in AM Monitor progress I will determine course of Rx once wokr-up completed and depending on his clinical progress I will follow along with you and adjust his Abx Rx as needed Thank you for this consultation Discussed Condition With D/W Kenia Castillo MD Feb 24, 2017 13:33
--- NOTE | 2017-02-24 14:21 | MB ---
cc: SAM GARCIA MD DATE OF CONSULTATION 02/24/17 REASON FOR CONSULTATION Elevated troponin. HISTORY OF PRESENT ILLNESS The patient is a 37-year-old gentleman with a history of sickle cell disease who was found unresponsive by his roommate, found to be severely hypoxic with saturations in the 50s. His initial blood sugar was in the 200s and his initial pH was 7.0. The patient was intubated and brought to the ICU. Notably, he was very acidemic with a pH of 7.0 and lactate of 19.6. PAST MEDICAL HISTORY As above. MEDICATIONS Current medications: 1. IV Protonix. 2. Zosyn. 3. Fentanyl. ALLERGIES ALLERGIES ARE EGGS. PHYSICAL EXAMINATION VITAL SIGNS: Afebrile, pulse 144, respiratory rate 16, BP 129/59, satting 100% on 100% FIO2. GENERAL: Intubated, sedated -[place] gentleman in no distress. NECK: No JVD. LUNGS: Ventilator sounds appreciated. CARDIOVASCULAR: Tachycardiac. No significant murmurs appreciated. ABDOMEN: Benign. EXTREMITIES: No edema. LABORATORY DATA Sodium was 146, potassium 4.0, chloride 107, bicarb 9.9, BUN 13, creatinine 2.75, lactic acid 19.6, troponin 8.32, ammonia is 253. Toxicology screen was negative. UA did show some bacteria, occult blood. Urine cultures are pending. White count 30.2, hematocrit 39.5, platelets 60. CARDIOLOGY STUDIES EKG shows sinus tachycardia at 148. Current telemetry shows sinus tachycardia of 134. His echocardiogram preliminarily showed a preserved ejection fraction of 50-55%. Full report is pending. IMPRESSION Elevated troponin: His elevated troponin is likely secondary to his acute metabolic crisis. Though coronary disease and acute coronary syndrome are not completely excluded, likely his severe hypoxia and acidemia were the etiology of his cardiac distress. His preserved ejection fraction echocardiogram is reassuring. Once he is clinically stable an ischemic workup would be appropriate, likely with a nuclear stress test. Further recommendations based on the clinical course. Thank you again for the opportunity to participate in this patient's care. Sam Garcia MD JUAN PABLO/ANA MARÍA /12:23 PM /2:11 PM
--- NOTE | 2017-02-24 14:44 | ECHRPT ---
Indication: INCREASED TROPONIN CONCLUSIONS Normal left ventricular normal biventricular size and systolic function. No hemodynamically signifc ant valvular abnormalties. Mild concentric left ventricular hypertrophy. The left ventricular systolic function is low normal with an estimated ejection fraction in the rang e of 50- 55%. Doppler parameters are consistent with impaired left ventricular relaxtion (grade 1 diastolic dysfun ction). BP: 137 / 63 HR: 66 Rhythm: Sinus MEASUREMENTS (Male / Female) Normal Values Technical Quality:Fair 2D ECHO LV Diastolic Diameter PLAX 3.6 cm 4.2 - 5.9 / 3.9 - 5.3 cm LV Systolic Diameter PLAX 2.8 cm IVS Diastolic Thickness 1.1 cm 0.6 - 1.0 / 0.6 - 0.9 cm LVPW Diastolic Thickness 1.1 cm 0.6 - 1.0 / 0.6 - 0.9 cm LV Relative Wall Thickness 0.6 LVOT Diameter 2.2 cm Aortic Root Diameter 3.2 cm LA Systolic Diameter LX 1.9 cm 3.0 - 4.0 / 2.7 - 3.8 cm M-MODE AV Cusp Separation MM 2.1 cm DOPPLER AV Peak Velocity 135.0 cm/s AV Peak Gradient 7.3 mmHg AV Mean Gradient 3.0 mmHg AV Velocity Time Integral 15.6 cm LVOT Peak Velocity 116.0 cm/s LVOT Peak Gradient 5.4 mmHg LVOT Velocity Time Integral 16.7 cm LVOT Cardiac Index 2174.8 cm/minm AV Area Cont Eq vti 4.1 cm AV Area Cont Eq pk 3.3 cm Mitral E Point Velocity 106.0 cm/s Mitral A Point Velocity 129.0 cm/s Mitral E to A Ratio 0.8 LV E' Lateral Velocity 3.6 cm/s Mitral E to LV E' Lateral Ratio 29.4 LV E' Septal Velocity 4.5 cm/s Mitral E to LV E' Septal Ratio 23.7 PV Peak Velocity 66.2 cm/s PV Peak Gradient 1.8 mmHg FINDINGS LEFT VENTRICLE Normal left ventricular size. Mild concentric left ventricular hypertrophy. The left ventricular systolic function is low normal with an estimated ejection fraction in the rang e of 50- 55%. Doppler parameters are consistent with impaired left ventricular relaxtion (grade 1 diastolic dysfun ction). RIGHT VENTRICLE Normal right ventricular size and systolic function. LEFT ATRIUM The left atrial size is normal. RIGHT ATRIUM The right atrial size is normal. ATRIAL SEPTUM The interatrial septum not well visualized. AORTA The aortic root and proximal ascending aorta are normal in size on limited imaging. MITRAL VALVE Structurally normal mitral valve. AORTIC VALVE The aortic valve is not well visualized. TRICUSPID VALVE Structurally normal tricuspid valve. PULMONARY VALVE The pulmonary valve is not well visualized. VESSELS The inferior vena cava is normal in size. PERICARDIUM No pericardial effusion. Sam Garcia MD (Electronically Signed) Final Date:24 February 2017 14:43
--- NOTE | 2017-02-24 14:58 | PD.PROCEDR ---
Central Line Procedure REASON FOR PROCEDURE Central venous access PROCEDURE PERFORMED Central line placement: Right subclavian central line CONSENT Informed consent for procedure was obtained. The risks and benefits of the procedure were discussed to include but limited to bleeding, clot formation, infection, and even . ANESTHESIA Local injection of 1% Lidocaine DESCRIPTION OF THE PROCEDURE The patient was placed in supine, mild Trendelenburg position. The area was exposed and cleansed with ChloraPrep, times two. Large sterile drape was used to cover the patient, with the site exposed, under sterile conditions including cap, face mask, sterile gown, and sterile gloves. On single attempt, the introducer needle was inserted with negative pressure in syringe and venous flash was obtained. The guide wire was then advanced without any restriction and the needle was removed. The dilator was used without any complications. Using Seldinger technique the catheter was advanced over the guide wire to a depth of 20 centimeters. The guide wire was removed. All ports were aspirated with dark venous blood return and flushed easily with sterile saline. All ports were capped. Antibiotic disc was placed around central line at puncture site. The central line was secured to the skin with two interrupted 2.0 silk sutures. The area was bandaged with sterile see-through central line bandage. RADIOLOGICAL DATA CXR ordered to verify line placement COMPLICATIONS: No apparent complications ESTIMATED BLOOD LOSS: Less than 1 cc. Uma Elizalde MD Feb 24, 2017 14:58
--- NOTE | 2017-02-24 15:48 | RADRPT ---
EXAM DATE/TIME: 02/24/2017 14:45 [facility] COMPARISON: CHEST SINGLE AP, February 24, 2017, 8:22. INDICATIONS : Evaluate central line placement. MEDICAL HISTORY : Sickle Cell disease. SURGICAL HISTORY : None. ENCOUNTER: Subsequent ACUITY: 1 day PAIN SCORE: Non-responsive. LOCATION: Bilateral chest FINDINGS: ET tube, NG tube and right subclavian line are well placed. The patient is rotated towards the right. The heart size appears normal. There is some prominence of the right hilar region which may be secon adin to rotation. The lungs appear grossly clear. There is sclerosis at the left humeral head presuma suly from avascular necrosis. CONCLUSION: Rotated chest x-ray without definite acute abnormality. Giancarlo Crawford MD on February 24, 2017 at 15:44 Board Certified Radiologist. This report was verified electronically.
[2017-02-24] MEDS ORDERED: DEXTROSE 50% IN WATER 50 ML SYRINGE ONE ×2 (15:58→17:27)
[2017-02-24 16:04] LABS: AUTOMATED NEUTROPHIL # 34.4 TH/MM3 (1.8-7.7); EOSINOPHIL % 0.1 % (0.0-4.0); HEMATOCRIT 37.1 % (39.0-51.0); LYMPH % 4.4 % (9.0-44.0); LYMPHOCYTE # 1.7 TH/MM3 (1.0-4.8); MEAN CELL VOLUME 78.9 FL (80.0-100.0); MONO % 5.8 % (0.0-8.0); NEUT % 89.7 % (16.0-70.0); PLATELET COUNT 67 TH/MM3 (150-450); RED CELL DISTRIBUTION WIDTH 20.1 % (11.6-17.2); WHITE BLOOD COUNT 38.3 TH/MM3 (4.0-11.0)
[2017-02-24 16:06] LABS: HEMO FLAGS AUTO DIFF
[2017-02-24 16:39] LABS: BANDS 15 % (0-6); CORRECTED NUCLEATED RBC 2 /100 WBC (0-0); NEUTROPHIL # MANUAL DIFF 35.6 TH/MM3 (1.8-7.7); POLYS (SEG NEUTROPHILS) 78 % (16-70); WBC DIFF SAMPLE 100
[2017-02-24 16:40] LABS: BLOOD GAS VENOUS BASE EXCESS -16.2 mmol/L (-2-2); BLOOD GAS VENOUS HCO3 12 mmol/L (22-26); BLOOD GAS VENOUS O2 CONTENT 11.9 Vol % (9.0-17.0); BLOOD GAS VENOUS O2 HGB SAT 71 % (70-76); BLOOD GAS VENOUS PCO2 39 mmHg (44-48); BLOOD GAS VENOUS PO2 60 mmHg (35-40); CRITICAL VALUE YES; DRAW SITE LT RADIAL; FIO2 40 %; OXYGEN DEVICE VENTILATOR; STAT NO; TEMP CORR TO 98.6; VENT SETTINGS PRVC/AC 500/18/5PEEP
[2017-02-24 16:40] LABS: PLATELET ESTIMATE SMEAR LOW (NORMAL); PLATELET MORPHOLOGY NORMAL (NORMAL); SCAN/DIFF FINAL DIFF MANUAL
[2017-02-24] MEDS ORDERED: TERBUTALINE INJ 1 MG/ML AMP SQ PRN (16:45)
[2017-02-24] MEDS ORDERED: CALCIUM GLUCONATE 10% 1 GM/10 ML VIAL ONE (16:53)
[2017-02-24 17:25] LABS: MAGNESIUM 4.1 MG/DL (1.5-2.5)
[2017-02-24 17:26] LABS: BICARBONATE 12.7 MEQ/L (21.0-32.0)
[2017-02-24 17:27] LABS: POTASSIUM 7.6 MEQ/L (3.5-5.1)
--- NOTE | 2017-02-24 17:35 | PD.PROCEDR ---
Central Line Procedure REASON FOR PROCEDURE Central venous access PROCEDURE PERFORMED Central line placement: Right Femoral vascath CONSENT Informed consent for procedure was obtained. The risks and benefits of the procedure were discussed to include but limited to bleeding, clot formation, infection, and even . ANESTHESIA Local injection of 1% Lidocaine DESCRIPTION OF THE PROCEDURE The patient was placed in supine, mild Trendelenburg position. The area was exposed and cleansed with ChloraPrep, times two. Large sterile drape was used to cover the patient, with the site exposed, under sterile conditions including cap, face mask, sterile gown, and sterile gloves. On single attempt, the introducer needle was inserted with negative pressure in syringe and venous flash was obtained. The guide wire was then advanced without any restriction and the needle was removed. The dilator was used without any complications. Using Seldinger technique the catheter was advanced over the guide wire to a depth of 20 centimeters. The guide wire was removed. All ports were aspirated with dark venous blood return and flushed easily with sterile saline. All ports were capped. Antibiotic disc was placed around central line at puncture site. The central line was secured to the skin with two interrupted 2.0 silk sutures. The area was bandaged with sterile see-through central line bandage. RADIOLOGICAL DATA Ultrasound guidance was used to locate Right Femoral vein COMPLICATIONS: No apparent complications ESTIMATED BLOOD LOSS: Less than 1 cc. Uma Elizalde MD Feb 24, 2017 17:35
--- NOTE | 2017-02-24 17:39 | PD.PROCEDR ---
Central Line Procedure REASON FOR PROCEDURE Hemodynamic monitoring PROCEDURE PERFORMED Central line placement:Right Rad Art line CONSENT Informed consent for procedure was obtained . The risks and benefits of the procedure were discussed to include but limited to bleeding, clot formation, infection, and even . ANESTHESIA Local injection of 1% Lidocaine DESCRIPTION OF THE PROCEDURE The patient was placed in supine, mild Trendelenburg position. The area was exposed and cleansed with ChloraPrep, times two. Large sterile drape was used to cover the patient, with the site exposed, under sterile conditions including cap, face mask, sterile gown, and sterile gloves. On single attempt, the introducer needle was inserted with negative pressure in syringe and venous flash was obtained. The guide wire was then advanced without any restriction and the needle was removed. The dilator was used without any complications. Using Seldinger technique the catheter was advanced over the guide wire to a depth of 10 centimeters. The guide wire was removed. All ports were aspirated with dark venous blood return and flushed easily with sterile saline. All ports were capped. Antibiotic disc was placed around central line at puncture site. The central line was secured to the skin with two interrupted 2.0 silk sutures. The area was bandaged with sterile see-through central line bandage. COMPLICATIONS: No apparent complications ESTIMATED BLOOD LOSS: Less than 1 cc. Uma Elizalde MD Feb 24, 2017 17:39
[2017-02-24 17:45] LABS: CALCIUM-PROTEIN CORRECTED 5.9 MG/DL (8.5-10.1)
[2017-02-24] MEDS ORDERED: INSULIN HUMAN REGULAR 1,000 UNITS/10 ML VIAL IV PUSH ONE (17:45)
[2017-02-24] MEDS ORDERED: PHENYLEPHRINE INJ 40 MG in DEXTROSE 5% IN WATE 500 ML INJ 496 ML IV SCH ×2 (17:45)
[2017-02-24] MEDS ORDERED: DEXTROSE 50% IN WATER 50 ML SYRINGE IV ONE (17:45)
[2017-02-24] MEDS ORDERED: SODIUM POLYSTYRENE SULFONATE SUSP 15 GM/60 ML CUP OG-TUBE ONE (17:45)
[2017-02-24] MEDS ORDERED: CALCIUM GLUCONATE INJ 1 GM in SODIUM CHLORIDE 0.9% INJ 100 ML IV ONE (18:00)
[2017-02-24] MEDS ORDERED: SODIUM CHLOR 0.9% 1000 ML INJ 1,000 ML IV PRN ×3 (18:36)
--- NOTE | 2017-02-24 18:36 | PD.CONS ---
HPI Consult Requested By Reason for Consult Acute renal failure Hyperkalemia Primary Care Physician Unknown History of Present Illness This is a 37-year-old Afro[place] male apparently with a history of sickle cell disease. Patient unable to provide any clinical history at this time secondary to altered mental status. Patient was brought to the hospital with altered mental status, on presentation noted to have a creatinine of 2.75, total CO2 of 9.9. CPK was elevated. Patient in respiratory failure and initially shock and was admitted to the ICU and is currently intubated on the ventilator. Despite aggressive hydration creatinine level has deteriorated to 3.75 with a total CO2 of 12.7 and his potassium level has risen to 7.6. Renal consult placed for acute renal failure with associated severe metabolic acidosis and worsening life-threatening hyperkalemia. Review of Systems ROS Limitations: Unresponsive Past Family Social History Allergies: Coded Allergies: Egg Allergy (Verified Allergy, Severe, Nausea/Vomiting, 02/24/17) Past Medical History Sickle cell disease per records. No other history currently available. Past Surgical History Unobtainable. Reported Medications Reported Meds & Active Scripts Active Active Prescriptions or Reported Medications Unobtainable Mention of ibuprofen use in the ER records. Active Ordered Medications Current Medications IV Flush 2 ml 2 ml UNSCH PRN IV FLUSH FLUSH AFTER USING IV ACCESS; Start at 08:15 Sodium Chloride (NS 1000 ml Inj) 1,000 ml @ 1,000 mls/hr Q1H IV Last administered on 02/24/17 08:50; Start 02/24/17 at 08:11; Stop 02/24/17 at 09:10 ; Status DC Midazolam HCl 4 mg 4 mg ONCE ONCE IV PUSH ; Start 02/24/17 at 08:15; Stop 02/24 at 08:16; Status DC Midazolam HCl 100 ml @ 0 mls/hr CONTINUOUS IV ; Start 02/24/17 at 08:15; Stop at 09:52; Status DC Fentanyl Citrate 250 ml @ 0 mls/hr CONTINUOUS IV ; Start 02/24/17 at 08:15 Midazolam HCl 100 ml @ As Directed STK-MED ONCE .ROUTE Last administered on 08:51; Start 02/24/17 at 08:39; Stop 02/24/17 at 08:40; Status DC Fentanyl Citrate 250 ml @ As Directed STK-MED ONCE .ROUTE Last administered on 02/24/17 08:50; Start 02/24/17 at 08:39; Stop 02/24/17 at 08:40; Status DC Vancomycin HCl 1000 mg/Sodium Chloride 250 ml @ 250 mls/hr ONCE ONCE IV Last administered on 02/24/17 10:06; Start 02/24/17 at 09:30; Stop 02/24/17 at 10:29 ; Status DC Piperacillin Sod/ Tazobactam Sod 50 ml @ 100 mls/hr ONCE ONCE IV ; Start 02/24 at 09:30; Stop 02/24/17 at 09:59; Status DC Sodium Chloride 1,000 ml @ 999 mls/hr BOLUS ONCE IV Last administered on 02/24 09:54; Start 02/24/17 at 09:30; Stop 02/24/17 at 10:30; Status DC Sodium Chloride (NS 1000 ml Inj) 1,000 ml @ 999 mls/hr BOLUS ONCE IV Last administered on 02/24/17 09:54; Start 02/24/17 at 09:30; Stop 02/24/17 at 10:30 ; Status DC Sodium Bicarbonate (Sodium Bicarbonate 8.4% Inj) 50 meq ONCE ONCE IV PUSH Last administered on 02/24/17 10:12; Start 02/24/17 at 09:45; Stop 02/24/17 at 09:46; Status DC Sodium Bicarbonate (Sodium Bicarbonate 8.4% Inj) 50 meq ONCE ONCE IV PUSH ; Start 02/24/17 at 10:00; Stop 02/24/17 at 10:01; Status Cancel Lactulose (Lactulose Liq) 30 ml ONCE ONCE PO ; Start 02/24/17 at 10:00; Stop at 10:01; Status DC Sodium Bicarbonate (Sodium Bicarbonate 8.4% Inj) 50 meq ONCE ONCE IV PUSH Last administered on 02/24/17 10:29; Start 02/24/17 at 10:15; Stop 02/24/17 at 10:16; Status DC Pantoprazole Sodium (Protonix Inj) 40 mg DAILY IV Last administered on 12:11; Start 02/24/17 at 10:15 Albuterol/ Ipratropium (Duoneb Neb) 1 ampule Q6HR NEB INH Last administered on 02/24/17 15:44; Start 02/24/17 at 10:15 Miscellaneous Information 1 [id number] Last administered on 02/24/17 10:15; Start 02/24/17 at 10:15 Chlorhexidine Gluconate (Chlorhexidine 2% Cloth) 3 pack Taper DAILY@04 TOP ; Start 02/25/17 at 04:00; Stop 02/21/18 at 03:59 Chlorhexidine Gluconate (Chlorhexidine 2% Cloth) 3 pack UNSCH PRN TOP HYGIENIC CARE; Start 02/24/17 at 10:15 Senna/Docusate Sodium (Zena-Colace) 1 tab BID PO ; Start 02/24/17 at 10:15 Magnesium Hydroxide (Milk Of Magnesia Liq) 30 ml Q12H PRN PO MILD - MODERATE CONSTIPATION; Start 02/24/17 at 10:15 Sennosides (Senokot) 17.2 mg Q12H PRN PO MODERATE - SEVERE CONSTIPATION; Start 02/24/17 at 10:15 Bisacodyl (Dulcolax Supp) 10 mg DAILY PRN RECTAL SEVERE CONSITIPATION; Start at 10:15 Lactulose 30 ml 30 ml DAILY PRN PO SEVERE CONSITIPATION; Start 02/24/17 at 10: 15 Sodium Bicarbonate 150 meq/Sterile Water 1,000 ml @ 150 mls/hr Q6H40M IV Last administered on 02/24/17 17:04; Start 02/24/17 at 11:00 Pharmacy Profile Note 0 ml @ 0 mls/hr UNSCH OTHER ; Start 02/24/17 at 10:15 Piperacillin Sod/ Tazobactam Sod (Zosyn 3.375 Gm Premix) 50 ml @ 100 mls/hr Q6HR IV Last administered on 02/24/17 18:08; Start 02/24/17 at 12:00 Rocuronium [place] (Zemuron Inj) 50 mg BOLUS ONCE IV Last administered on 02/24 07:58; Start 02/24/17 at 10:30; Stop 02/24/17 at 10:31; Status DC Etomidate (Amidate Inj) 20 mg ONCE ONCE IV PUSH Last administered on 08:01; Start 02/24/17 at 10:30; Stop 02/24/17 at 10:31; Status DC Lactulose (Lactulose Liq) 30 ml QID PO Last administered on 02/24/17 18:08; Start 02/24/17 at 13:00 Dextrose (D50w (Vial) Inj) 50 ml UNSCH PRN IV HYPOGLYCEMIA-SEE COMMENTS; Start 02/24/17 at 10:45 Glucagon (Glucagon Inj) 1 mg UNSCH PRN OTHER HYPOGLYCEMIA-SEE COMMENTS; Start 02/24/17 at 10:45 Insulin Human Regular (NovoLIN R SUPPLEMENTAL SCALE) 1 Q4H SQ Last administered on 02/24/17 18:22; Start 02/24/17 at 10:45 Miscellaneous Information SPECIFIC LAB TO BE DRAWN:VA... ONCE ONCE .XX ; Start 02/25/17 at 10:00; Stop 02/25/17 at 10:01 Sodium Bicarbonate (Sodium Bicarbonate 8.4% Inj) 100 meq ONCE ONCE IV PUSH Last administered on 02/24/17 13:15; Start 02/24/17 at 13:15; Stop 02/24/17 at 13:17; Status DC Dextrose 50 ml 50 ml STK-MED ONCE .ROUTE Last administered on 02/24/17 15:58; Start 02/24/17 at 15:58; Stop 02/24/17 at 15:59; Status DC Phenylephrine HCl/ Dextrose (Neosynephrine Inj/D5W 500 ml Inj) 500 ml @ 0 mls/ hr TITRATE IV Last administered on 02/24/17 17:40; Start 02/24/17 at 17:45 Terbutaline Sulfate 1 mg 1 mg UNSCH PRN SQ For Extravasation; Start 02/24/17 at 16:45 Calcium Gluconate/ Sodium Chloride (Calcium Gluconate Inj/NS Inj) 110 ml @ 110 mls/hr ONCE ONCE IV Last administered on 02/24/17 17:04; Start 02/24/17 at 18 :00; Stop 02/24/17 at 18:59 Calcium Gluconate (Calcium Gluconate Inj) 1 gm STK-MED ONCE .ROUTE ; Start 02/24 at 16:53; Stop 02/24/17 at 16:54; Status DC Dextrose (D50w (Syr) Inj) 50 ml STK-MED ONCE .ROUTE Last administered on 17:27; Start 02/24/17 at 17:27; Stop 02/24/17 at 17:28; Status DC Insulin Human Regular (NovoLIN R INJ) 7 units ONCE ONCE IV PUSH Last administered on 02/24/17 17:45; Start 02/24/17 at 17:45; Stop 02/24/17 at 17:46 ; Status DC Dextrose (D50w (Syr) Inj) 50 ml ONCE ONCE IV Last administered on 02/24/17 17 :45; Start 02/24/17 at 17:45; Stop 02/24/17 at 17:46; Status DC Sodium Polystyrene Sulfonate (Kayexalate Liq) 30 gm ONCE ONCE OG-TUBE Last administered on 02/24/17 17:45; Start 02/24/17 at 17:45; Stop 02/24/17 at 17:46 ; Status DC Family History Unobtainable. Social History Unobtainable. Physical Exam Vital Signs Vital Signs Date Time Temp Pulse Resp B/P Pulse Ox O2 Delivery O2 Flow Rate FiO2 02/24/17 18:00 109 02/24/17 16:00 123 26 82/51 02/24/17 16:00 120 02/24/17 15:45 99 40 02/24/17 14:00 125 02/24/17 12:19 100 40 02/24/17 12:00 97.8 135 16 110/51 100 02/24/17 12:00 136 02/24/17 11:00 96.1 144 16 129/59 100 Ventilator 02/24/17 10:46 95.5 145 16 124/56 100 Ventilator 02/24/17 10:30 100 100 02/24/17 10:17 96.1 149 16 137/63 100 Ventilator 40 02/24/17 09:15 100 100 02/24/17 09:12 95.1 147 16 130/64 100 Ventilator 02/24/17 08:45 95.5 147 16 129/58 100 Ventilator 02/24/17 08:14 100 02/24/17 08:10 97.0 143 16 112/59 100 02/24/17 08:07 100 02/24/17 08:07 138 18 93/52 100 02/24/17 08:07 100 Ventilator 15.00 100 02/24/17 08:07 100 100 02/24/17 08:00 137 6 98/51 100 Nasal Cannula 6 02/24/17 07:56 89 23 117/57 100 Nasal Cannula 6 Laboratory Laboratory Tests Test 02/24/17 02/24/17 02/24/17 02/24/17 07:55 08:00 08:25 09:47 Urine Color YELLOW Urine Turbidity HAZY Urine pH 5.5 Urine Specific [place] 1.011 Urine Protein 30 Urine Glucose (UA) NEG Urine Ketones NEG Urine Occult Blood MOD Urine Nitrite NEG Urine Bilirubin NEG Urine Urobilinogen LESS THAN 2.0 Urine Leukocyte Esterase NEG Urine RBC 1 Urine WBC 1 Urine Amorphous Sediment MOD Urine Bacteria OCC Urine Mucus FEW Microscopic Urinalysis Comment CATH-CULTURE IND Urine Opiates Screen NEG Urine Barbiturates Screen NEG Urine Amphetamines Screen NEG Urine Benzodiazepines Screen NEG Urine Cocaine Screen NEG Urine Cannabinoids Screen NEG Lactic Acid Level 19.6 Ammonia 253 White Blood Count 30.2 Red Blood Count 4.89 Hemoglobin 13.0 Hematocrit 39.5 Mean Corpuscular Volume 80.8 Mean Corpuscular Hemoglobin 26.6 Mean Corpuscular Hemoglobin 32.9 Concent Red Cell Distribution Width 19.7 Platelet Count 60 Mean Platelet Volume 9.2 Neutrophils (%) (Auto) 75.6 Lymphocytes (%) (Auto) 13.4 Monocytes (%) (Auto) 10.5 Eosinophils (%) (Auto) 0.4 Basophils (%) (Auto) 0.1 Neutrophils # (Auto) 22.8 Lymphocytes # (Auto) 4.0 Monocytes # (Auto) 3.2 Eosinophils # (Auto) 0.1 Basophils # (Auto) 0.0 CBC Comment AUTO DIFF Differential Total Cells 100 Counted Neutrophils % (Manual) 78 Band Neutrophils % 1 Lymphocytes % 14 Monocytes % 7 Neutrophils # (Manual) 23.9 Differential Comment FINAL DIFF MANUAL Platelet Estimate LOW Platelet Morphology Comment NORMAL Target Cells 1+ Prothrombin Time 13.0 Prothromb Time International 1.2 Ratio Activated Partial 30.8 Thromboplast Time Sodium Level 146 Potassium Level 4.0 Chloride Level 107 Carbon Dioxide Level 9.9 Anion Gap 29 Blood Urea Nitrogen 13 Creatinine 2.75 Estimat Glomerular Filtration 31 Rate Random Glucose 140 Calcium Level 9.1 Total Bilirubin 1.9 Aspartate Amino Transf 141 (AST/SGOT) Alanine Aminotransferase 96 (ALT/SGPT) Alkaline Phosphatase 102 Total Creatine Kinase 4081 Creatine Kinase MB 25.1 Creatine Kinase MB % 0.6 Troponin I 8.32 Total Protein 8.3 Albumin 4.4 Thyroid Stimulating Hormone 1.790 3rd Gen Salicylates Level LESS THAN 1.7 Acetaminophen Level LESS THAN 2.0 Ethyl Alcohol Level LESS THAN 3 Serum Osmolality 326 Test 02/24/17 02/24/17 02/24/17 02/24/17 09:48 11:11 11:37 11:47 Blood Gas Puncture Site RT FEMORAL Blood Gas Patient Temperature 98.6 Blood Gas HCO3 11 Blood Gas Base Excess -17.9 Blood Gas Oxygen Saturation 98 Arterial Blood pH 7.00 Arterial Blood Partial 48 Pressure CO2 Arterial Blood Partial 338 Pressure O2 Arterial Blood Oxygen Content 19.1 Arterial Blood 0.0 Carboxyhemoglobin Arterial Blood Methemoglobin 1.1 Blood Gas Hemoglobin 13.3 Oxygen Delivery Device VENTILATOR Blood Gas Ventilator Setting 500/16/+5/1.0 Blood Gas Inspired Oxygen 100 Nasal Screen MRSA (PCR) MRSA NOT DETECTED Fibrinogen 123 Lactic Acid Level 15.0 Test 02/24/17 02/24/17 02/24/17 13:00 15:21 16:30 Blood Gas Puncture Site LT RADIAL LT RADIAL Blood Gas Patient Temperature 98.6 98.6 Blood Gas HCO3 12 Blood Gas Base Excess -16.0 Blood Gas Oxygen Saturation 96 Arterial Blood pH 7.11 Arterial Blood Partial 38 Pressure CO2 Arterial Blood Partial 146 Pressure O2 Arterial Blood Oxygen Content 17.3 Arterial Blood 0.7 Carboxyhemoglobin Arterial Blood Methemoglobin 1.6 Blood Gas Hemoglobin 12.7 Oxygen Delivery Device VENTILATOR VENTILATOR Blood Gas Ventilator Setting PRVC/AC16/500 PRVC/AC 500/18/5PEEP Blood Gas Inspired Oxygen 40 40 White Blood Count 38.3 Red Blood Count 4.70 Hemoglobin 12.2 Hematocrit 37.1 Mean Corpuscular Volume 78.9 Mean Corpuscular Hemoglobin 26.0 Mean Corpuscular Hemoglobin 33.0 Concent Red Cell Distribution Width 20.1 Platelet Count 67 Mean Platelet Volume 9.2 Neutrophils (%) (Auto) 89.7 Lymphocytes (%) (Auto) 4.4 Monocytes (%) (Auto) 5.8 Eosinophils (%) (Auto) 0.1 Basophils (%) (Auto) 0.0 Neutrophils # (Auto) 34.4 Lymphocytes # (Auto) 1.7 Monocytes # (Auto) 2.2 Eosinophils # (Auto) 0.0 Basophils # (Auto) 0.0 CBC Comment AUTO DIFF Differential Total Cells 100 Counted Neutrophils % (Manual) 78 Band Neutrophils % 15 Lymphocytes % 3 Monocytes % 4 Neutrophils # (Manual) 35.6 Nucleated Red Blood Cells 2 Differential Comment FINAL DIFF MANUAL Platelet Estimate LOW Platelet Morphology Comment NORMAL Sodium Level 144 Potassium Level 7.6 Chloride Level 106 Carbon Dioxide Level 12.7 Anion Gap 25 Blood Urea Nitrogen 20 Creatinine 3.75 Estimat Glomerular Filtration 22 Rate Random Glucose 165 Lactic Acid Level 15.7 Calcium Level 5.2 Protein Corrected Calcium 5.9 Phosphorus Level 15.6 Magnesium Level 4.1 Total Creatine Kinase 48363 Creatine Kinase MB 176.0 Creatine Kinase MB % 0.5 Troponin I 23.90 Total Protein 5.2 Venous Blood pH 7.10 Venous Blood Partial Pressure 39 CO2 Venous Blood Partial Pressure 60 O2 Venous Blood HCO3 12 Venous Blood Oxygen Saturation 71 Venous Blood Oxygen Content 11.9 Venous Blood Base Excess -16.2 Date/Time Procedure Status Source Growth 02/24/17 15:54 Gram Stain Received Sputum Endotracheal Pending 02/24/17 15:54 Sputum Culture Received Sputum Endotracheal Pending 02/24/17 08:25 Aerobic Blood Culture Received Blood Peripheral Pending 02/24/17 08:25 Anaerobic Blood Culture Received Blood Peripheral Pending 02/24/17 07:55 Urine Culture Received Urine Clean Catch Pending 02/24/17 07:55 Legionella Antigen - Final Complete Urine Catheterized Urine PRESUMPTIVE NEGATIVE FOR LEGIONELLA P... 02/24/17 07:55 Streptococcus pneumoniae Antigen (M - Final Complete Urine Catheterized Urine PRESUMPTIVE NEGATIVE FOR STREPTOCOCCU... Result Diagram: 02/24/17 1521 02/24/17 1521 Imaging Last [address] 02/24/17 0811 Signed Impressions: Service Date/Time: Friday, February 24, 2017 09:13 - CONCLUSION: Unremarkable CT scan of the brain Slade Bustillo MD Chest X-Ray 02/24/17 0811 Signed Impressions: Service Date/Time: Friday, February 24, 2017 08:22 - CONCLUSION: 1. The ET tube and NG tube are in good position. 2. There is good aeration of both lung lozada. Slade Bustillo MD Chest X-Ray 02/24/17 0000 Signed Impressions: Service Date/Time: Friday, February 24, 2017 14:45 - CONCLUSION: Rotated chest x-ray without definite acute abnormality. Giancarlo Crawford MD Chest CT 02/24/17 0000 Signed Impressions: Service Date/Time: Friday, February 24, 2017 10:48 - CONCLUSION: 1. Parenchymal consolidation involving the right lower lung. 2. Interstitial infiltrate in the left lower lung. Slade Bustillo MD Cervical Spine CT 02/24/17 Signed Impressions: Service Date/Time: Friday, February 24, 2017 09:13 - CONCLUSION: Normal examination for a patient of this age. Slade Bustillo MD Abdomen/Pelvis CT 02/24/17 Signed Impressions: Service Date/Time: Friday, February 24, 2017 10:48 - CONCLUSION: 1. Stable splenomegaly. 2. No new or significant changes compared to the examination from 2013. Slade Bustillo MD Assessment and Plan Problem List: (1) Acute kidney insufficiency Plan: Acute renal insufficiency secondary to his shock syndrome. Uncertain if rhabdomyolysis is also contributory at this time. CPK is elevated but not severely so. Regardless patient appears to be oliguric severe metabolic acidosis and developing life-threatening hyperkalemia. Discussed with critical care. We believe dialysis is indicated at this point in time for management of his hyperkalemia and acidosis. Patient appears to be stable enough for conventional dialysis presently which should be more effective in improving his hyperkalemia and acid base status in the acute setting. Dialysis orders will be entered. Dialysis nurse has been contacted and notified of need for dialysis as soon as possible. Continuance of dialysis will depend upon the patient's clinical state and progress.. Medications should be adjusted for the patient's estimated GFR if clinically indicated. Avoid agents with significant potential for nephrotoxicity possible including NSAIDs for analgesia, iodine contrast agents. Gadolinium is contraindicated if the GFR is below 30. (2) Hyperkalemia Plan: Secondary to acute renal failure, metabolic acidosis and probable rhabdomyolysis. (3) Metabolic acidosis Plan: Secondary to shock syndrome would like acidosis. (4) Rhabdomyolysis Plan: May be related to sickle cell disease. (5) Shock Plan: Management per critical care. Azra Vitale MD Feb 24, 2017 18:36
[2017-02-24] MEDS ORDERED: ONDANSETRON HCL 4 MG/2 ML VIAL IV PRN (18:45)
[2017-02-24] MEDS ORDERED: GELATIN 12 MM/7 MM FOAM TOP PRN (18:45)
[2017-02-24] MEDS ORDERED: HEPARIN SODIUM - IV 10,000 UNITS/10 ML VIAL PRN (18:45)
[2017-02-24] MEDS ORDERED: HEPARIN SODIUM - IV 10,000 UNITS/10 ML VIAL IVF PRN (18:45)
[2017-02-24] MEDS ORDERED: MANNITOL 12.5 GM/50 ML VIAL IV PRN (18:45)
[2017-02-24] MEDS ORDERED: SODIUM CHLORIDE 0.9% FLUSH 10 ML FLUSH IV FLUSH PRN (18:45)
[2017-02-24] MEDS ORDERED: ALBUMIN HUMAN 25% 25 GM/100 ML BAGP IV PRN (18:45)
[2017-02-24] MEDS ORDERED: cloNIDine HCL 0.1 MG TAB PO PRN (18:45)
[2017-02-24] MEDS ORDERED: diphenhydrAMINE HCL 25 MG CAP PO PRN (18:45)
[2017-02-24] MEDS ORDERED: GENTAMICIN SULFATE (DIALYSIS USE ONLY) 20 MG/2 ML VIAL IV PRN (18:45)
[2017-02-24] MEDS ORDERED: NITROGLYCERIN 0.4 MG SL 25 TABS/BTL SL PRN (18:45)
[2017-02-24] MEDS ORDERED: ACETAMINOPHEN 325 MG TAB PO PRN (18:45)
--- NOTE | 2017-02-24 19:23 | HHI.PR ---
Subjective Remarks Patient seen during hemodialysis. Vas-Cath appears to be working well. Blood pressure relatively stable. Using a 3.5 calcium bath of hypocalcemia. Dialysis session for 3.5 hours. Objective Vital Signs Date Time Temp Pulse Resp B/P Pulse Ox O2 Delivery O2 Flow Rate FiO2 02/24/17 18:00 109 02/24/17 16:00 123 26 82/51 02/24/17 16:00 120 02/24/17 15:45 99 40 02/24/17 14:00 125 02/24/17 12:19 100 40 02/24/17 12:00 97.8 135 16 110/51 100 02/24/17 12:00 136 02/24/17 11:00 96.1 144 16 129/59 100 Ventilator 02/24/17 10:46 95.5 145 16 124/56 100 Ventilator 02/24/17 10:30 100 100 02/24/17 10:17 96.1 149 16 137/63 100 Ventilator 40 02/24/17 09:15 100 100 02/24/17 09:12 95.1 147 16 130/64 100 Ventilator 02/24/17 08:45 95.5 147 16 129/58 100 Ventilator 02/24/17 08:14 100 02/24/17 08:10 97.0 143 16 112/59 100 02/24/17 08:07 100 02/24/17 08:07 138 18 93/52 100 02/24/17 08:07 100 Ventilator 15.00 100 02/24/17 08:07 100 100 02/24/17 08:00 137 6 98/51 100 Nasal Cannula 6 02/24/17 07:56 89 23 117/57 100 Nasal Cannula 6 I/O 02/23/17 02/23/17 02/23/17 02/24/17 02/24/17 02/24/17 06:59 14:59 22:59 06:59 14:59 22:59 Intake Total 1924 ml Output Total 850 ml Balance 1074 ml Intake IV Total 1924 ml Output Urine Total 850 ml Result Diagram: 02/24/17 1521 02/24/17 1521 Azra Vitale MD Feb 24, 2017 19:23
[2017-02-24] MEDS ORDERED: MIDAZOLAM HCL 5 MG/ML VIAL (1 ML) ONE (20:02)
[2017-02-24] MEDS ORDERED: MIDAZOLAM HCL 5 MG/ML VIAL (1 ML) IV PUSH ONE (20:30)
[2017-02-24] MEDS ORDERED: NOREPINEPHRINE 4 MG/D5W 250 ML IV SCH (20:45)
[2017-02-24] MEDS ORDERED: MIDAZOLAM 100 MG/NS 100 ML DRIP Premix IV SCH (20:45)
[2017-02-24] MEDS: PHENYLEPHRINE INJ 40 MG in DEXTROSE 5% IN WATE 500 ML INJ 496 ML IV SCH ×2 (21:38)
[2017-02-24 23:38] LABS: BACTERIA, URINE FEW /hpf; BLOOD, URINE LARGE (NEG); GLUCOSE,URINE 300 mg/dL (NEG); KETONE, URINE TRACE mg/dL (NEG); MUCUS URINE FEW /lpf (OCC); NITRITE,URINE NEG (NEG)
[2017-02-24 23:58] LABS: COMMENT (UR) CATH-CULTURE IND; CULTURE IF INDICATED CATH CULTURE IND; URINE COLOR RED (YELLW/STRAW)
[2017-02-25] VITALS: BP 87/69; PULSE 109; PULSE 115; RESP 16; TEMP 98.1; O2SAT 100
[2017-02-25 00:49] LABS: BLOOD GAS BASE EXCESS -7.5 mmol/L (-2-2); BLOOD GAS CARBOXYHEMOGLOBIN 0.9 % (0-4); BLOOD GAS HCO3 17 mmol/L (22-26); BLOOD GAS METHEMOGLOBIN 1.5 % (0-2); BLOOD GAS O2 HGB SATURATION 97 % (90-100); BLOOD GAS OXYGEN CONTENT 15.9 Vol % (12.0-20.0); BLOOD GAS PCO2 32 mmHg (38-42); BLOOD GAS PO2 182 mmHg (61-120); BLOOD GAS TOTAL HGB 11.4 G/DL (12.0-16.0); CRITICAL VALUE NO; OXYGEN DEVICE VENTILATOR; TEMP CORR TO 98.6; VENT SETTINGS PRVC/AC
[2017-02-25 00:50] LABS: DRAW SITE ART LINE; FIO2 40 %; STAT NO
[2017-02-25 00:53] VITALS: O2SAT 100
[2017-02-25 01:21] LABS: ANION GAP 18 MEQ/L (5-15); BICARBONATE 19.8 MEQ/L (21.0-32.0); BLOOD UREA NITROGEN 16 MG/DL (7-18); CHLORIDE 100 MEQ/L (98-107); GLOMERULAR FILTRATION RATE 29 ML/MIN (>89); POTASSIUM 6.2 MEQ/L (3.5-5.1); SODIUM (NA) 138 MEQ/L (136-145)
[2017-02-25] MEDS: INSULIN NovoLIN REGULAR SUPPLEMENTAL SCALE SQ SCH (01:54)
[2017-02-25 02:00] VITALS: PULSE 109
[2017-02-25] MEDS ORDERED: SODIUM POLYSTYRENE SULFONATE SUSP 15 GM/60 ML CUP NG ONE (02:00)
[2017-02-25 02:03] LABS: CALCIUM-PROTEIN CORRECTED 6.4 MG/DL (8.5-10.1)
[2017-02-25] MEDS ORDERED: SODIUM CHLOR 0.9% 1000 ML INJ 1,000 ML IV PRN ×3 (02:05)
[2017-02-25] MEDS ORDERED: SODIUM CHLORIDE 0.9% FLUSH 10 ML FLUSH IV FLUSH PRN (02:15)
[2017-02-25] MEDS: SODIUM BICARBONATE 8.4% INJ 150 MEQ in WATER STERILE FOR INJ 850 ML IV SCH (02:18)
[2017-02-25] MEDS: PHENYLEPHRINE INJ 40 MG in DEXTROSE 5% IN WATE 500 ML INJ 496 ML IV SCH ×2 (02:34)
[2017-02-25 03:34] LABS: CREATINE KINASE 125090 U/L (39-308)
[2017-02-25] MEDS: RESP: ALBUTEROL 2.5 MG/IPRATROPIUM 0.5 MG NEB (SCH) INH (03:44)
[2017-02-25] MEDS: PIPERACIL-TAZO 3.375 GM PREMIX 50 ML IV SCH (03:51)
[2017-02-25 04:00] VITALS: BP 75/61; PULSE 109; PULSE 79; RESP 16; TEMP 98.3; O2SAT 100
[2017-02-25] MEDS ORDERED: CHLORHEXIDINE GLUCONATE 2 % 1 PACK (2 CLOTHS) TOP SCH (04:00)
[2017-02-25 04:14] LABS: AUTOMATED NEUTROPHIL # 25.3 TH/MM3 (1.8-7.7); BASOPHIL # 0.1 TH/MM3 (0-0.2); BASOPHIL % 0.2 % (0.0-2.0); EOSINOPHIL % 0.1 % (0.0-4.0); HEMATOCRIT 33.7 % (39.0-51.0); LYMPH % 4.1 % (9.0-44.0); LYMPHOCYTE # 1.1 TH/MM3 (1.0-4.8); MEAN CELL VOLUME 75.9 FL (80.0-100.0); MEAN CORPUSCULAR HEMOGLOBIN 26.3 PG (27.0-34.0); MEAN CORPUSCULAR HGB CONC 34.7 % (32.0-36.0); NEUT % 90.6 % (16.0-70.0); PLATELET COUNT 28 TH/MM3 (150-450); RED BLOOD COUNT 4.44 MIL/MM3 (4.50-5.90); RED CELL DISTRIBUTION WIDTH 19.6 % (11.6-17.2); WHITE BLOOD COUNT 27.9 TH/MM3 (4.0-11.0)
[2017-02-25 04:15] LABS: HEMO FLAGS AUTO DIFF
[2017-02-25 04:37] LABS: INTERNATIONAL NORMALIZED RATIO 1.8 RATIO; PROTHROMBIN TIME - PATIENT 20.6 SEC (9.8-11.6)
[2017-02-25 04:41] VITALS: O2SAT 100
[2017-02-25 04:42] LABS: BANDS 9 % (0-6); CORRECTED NUCLEATED RBC 7 /100 WBC (0-0); NEUTROPHIL # MANUAL DIFF 24.8 TH/MM3 (1.8-7.7); POLYS (SEG NEUTROPHILS) 80 % (16-70); WBC DIFF SAMPLE 100
[2017-02-25 04:43] LABS: PLATELET ESTIMATE SMEAR LOW (NORMAL); PLATELET MORPHOLOGY NORMAL (NORMAL); SCAN/DIFF FINAL DIFF MANUAL; STOMATOCYTES 1+ (NORMAL); TARGET CELLS 1+ (NORMAL)
[2017-02-25] MEDS ORDERED: DOPamine INJ PREMIX 500 ML ONE (04:53)
[2017-02-25 05:05] LABS: BICARBONATE 18.8 MEQ/L (21.0-32.0); TOTAL BILIRUBIN ADULT 2.4 MG/DL (0.2-1.0)
[2017-02-25] MEDS ORDERED: DOPamine 800 MG/D5W PREMIX 500 ML IV SCH (05:15)
[2017-02-25 05:22] LABS: CALCIUM-PROTEIN CORRECTED 5.7 MG/DL (8.5-10.1); POTASSIUM 7.7 MEQ/L (3.5-5.1)
[2017-02-25] MEDS ORDERED: EPINEPHrine HCL (1:10,000) 1 MG/10 ML SYRINGE IV ONE (05:47)
[2017-02-25] MEDS ORDERED: SODIUM BICARBONATE 7.5% INJ 44.6 MEQ/50 ML SYR IV PUSH ONE (05:47)
[2017-02-25] MEDS ORDERED: CALCIUM CHLORIDE 10% SOLN 1 GRAM/10 ML SYR IV ONE (05:47)
--- NOTE | 2017-02-25 05:54 | HHI.CCPN ---
Subjective Remarks/Hospital Course Called for cardiac arrest at about 0630. Asystole initial rhythm. Full ACLS protocol instituted but unable to restore anything but fine ventricular fibrillation. Unresponsive to meds and shocks. Pronounced at 0548 hours. Objective Vital Signs Date Time Temp Pulse Resp B/P Pulse Ox O2 Delivery O2 Flow Rate FiO2 02/25/17 04:41 100 30 02/25/17 04:00 98.3 79 16 75/61 02/24/17 11:00 Ventilator 02/24/17 08:07 15.00 Intake and Output 02/24/17 02/24/17 02/25/17 08:00 16:00 00:00 Intake Total 1924 ml 1785 ml Output Total 850 ml 350 ml Balance 1074 ml 1435 ml Result Diagram: 02/25/17 0358 02/25/17 0358 Other Results Microbiology Date/Time Procedure Status Source Growth 02/24/17 07:55 Legionella Antigen - Final Complete Urine Catheterized Urine PRESUMPTIVE NEGATIVE FOR LEGIONELLA P... 02/24/17 07:55 Streptococcus pneumoniae Antigen (M - Final Complete Urine Catheterized Urine PRESUMPTIVE NEGATIVE FOR STREPTOCOCCU... Laboratory Tests Test 02/24/17 02/24/17 02/24/17 02/25/17 09:48 13:00 16:30 00:33 Blood Gas Puncture Site RT FEMORAL LT RADIAL LT RADIAL ART LINE Blood Gas Patient Temperature 98.6 98.6 98.6 98.6 Blood Gas HCO3 11 mmol/L 12 mmol/L 17 mmol/L (22-26) (22-26) (22-26) Blood Gas Base Excess -17.9 mmol/L -16.0 mmol/L -7.5 mmol/L (-2-2) (-2-2) (-2-2) Blood Gas Oxygen Saturation 98 % (90-100) 96 % (90-100) 97 % (90-100) Arterial Blood pH 7.00 7.11 7.34 (7.380-7.420) (7.380-7.420) (7.380-7.420) Arterial Blood Partial 48 mmHg (38-42) 38 mmHg (38-42) 32 mmHg (38-42) Pressure CO2 Arterial Blood Partial 338 mmHG 146 mmHg 182 mmHg Pressure O2 (61-120) (61-120) (61-120) Arterial Blood Oxygen Content 19.1 Vol % 17.3 Vol % 15.9 Vol % (12.0-20.0) (12.0-20.0) (12.0-20.0) Arterial Blood 0.0 % (0-4) 0.7 % (0-4) 0.9 % (0-4) Carboxyhemoglobin Arterial Blood Methemoglobin 1.1 % (0-2) 1.6 % (0-2) 1.5 % (0-2) Blood Gas Hemoglobin 13.3 G/DL 12.7 G/DL 11.4 G/DL (12.0-16.0) (12.0-16.0) (12.0-16.0) Oxygen Delivery Device VENTILATOR VENTILATOR VENTILATOR VENTILATOR Blood Gas Ventilator Setting 500/16/+5/1.0 PRVC/AC16/500 PRVC/AC PRVC/AC 500/18/5PEEP Blood Gas Inspired Oxygen 100 % 40 % 40 % 40 % Venous Blood pH 7.10 (7.360-7.400) Venous Blood Partial Pressure 39 mmHg (44-48) CO2 Venous Blood Partial Pressure 60 mmHg (35-40) O2 Venous Blood HCO3 12 mmol/L (22-26) Venous Blood Oxygen Saturation 71 % (70-76) Venous Blood Oxygen Content 11.9 Vol % (9.0-17.0) Venous Blood Base Excess -16.2 mmol/L (-2-2) Golden Og MD Feb 25, 2017 05:54
[2017-02-25] MEDS ORDERED: PHARMACY ORDERED LAB ONE (10:00)
--- NOTE | 2017-02-25 12:08 | EKG ---
Date Performed: 02/24/2017 Time Performed: 09:30:03 PTAGE: 37 years EKG: SINUS TACHYCARDIA BORDERLINE LEFT AXIS DEVIATION S1-S2-S3 PATTERN, CONSISTENT WITH PULMONAR Y DISEASE, RVH, OR NORMAL VARIANT INCOMPLETE RIGHT BUNDLE BRANCH BLOCK Compared to previous tracing, the rate is faster. ABNORMAL RHYTHM ECG PREVIOUS TRACING : 01/05/2011 08.10 DOCTOR: Odilon Mcgee Interpretating Date/Time 02/25/2017 12:08:02
--- NOTE | 2017-02-25 12:09 | EKG ---
Date Performed: 02/24/2017 Time Performed: 15:58:36 PTAGE: 37 years EKG: Sinus tachycardia Possible right atrial abnormality Left axis deviation Extensive ST change s suggest myocardial injury/ischemia Compared to previous tracing, ST-T changes in the inferior and a nterior leads are more prominant. Clinical correlation is recommended. Abnormal ECG PREVIOUS TRACING : 02/24/2017 09.30.03 DOCTOR: Odilon Mcgee Interpretating Date/Time 02/25/2017 12:08:55
== END 2017-02-25 05:48 | disposition expired | DRG 871 ==
LOC: NEPC 07:45 → NEDA 09:51 → HIMW 11:00
PROVIDERS: ADMIT Internal Medicine Critical Care Medicine; ATTEND Internal Medicine Critical Care Medicine
PROC: 05H533Z Insertion of Infusion Device into Right Subclavian Vein, Percutaneous Approach (ICD-10-PCS; principal; 2017-02-24)
PROC: 03HY32Z Insertion of Monitoring Device into Upper Artery, Percutaneous Approach (ICD-10-PCS; 2017-02-24)
PROC: 06HM33Z Insertion of Infusion Device into Right Femoral Vein, Percutaneous Approach (ICD-10-PCS; 2017-02-24)
PROC: B54BZZA Ultrasonography of Right Lower Extremity Veins, Guidance (ICD-10-PCS; 2017-02-24)
PROC: 0BH17EZ Insertion of Endotracheal Airway into Trachea, Via Natural or Artificial Opening (ICD-10-PCS; 2017-02-24)
PROC: 5A1935Z Respiratory Ventilation, Less than 24 Consecutive Hours (ICD-10-PCS; 2017-02-24)
PROC: 5A1D00Z (ICD-10-PCS; 2017-02-24)
PROC: 5A2204Z Restoration of Cardiac Rhythm, Single (ICD-10-PCS; 2017-02-25)
DX: A41.9 Sepsis, unspecified organism (principal); R65.21 Severe sepsis with septic shock; J96.01 Acute respiratory failure with hypoxia; J96.02 Acute respiratory failure with hypercapnia; N17.9 Acute kidney failure, unspecified; E87.2 Acidosis; M62.82 Rhabdomyolysis; D69.6 Thrombocytopenia, unspecified; R00.0 Tachycardia, unspecified; D57.1 Sickle-cell disease without crisis; K72.90 Hepatic failure, unspecified without coma; E87.5 Hyperkalemia; H35.00 Unspecified background retinopathy; R74.8 Abnormal levels of other serum enzymes; I46.9 Cardiac arrest, cause unspecified; Z97.0 Presence of artificial eye; H54.0 Blindness, both eyes
CPT/HCPCS: 31500; 36556; 36600; 51702; 70450; 71010; 71250; 72125; 74176; 76937; 80048; 80053; 80074; 80307; 81001; 82140; 82550; 82552; 82805; 83605; 83735; 83930; 84100; 84155; 84443; 84484; 85007; 85027; 85384; 85610; 85730; 87040; 87070; 87086; 87205; 87449; 87641; 90935; 92950; 93005; 93306; 94002; 94003; 94640; 94664; 96374; 96375; C9113; J0171; J0610; J1265; J1580; J1644; J1815; J2250; J2370; J2543; J3010; J3370; J7030; J7050; J7060